=== PATIENT | male | born 1935 | race Caucasian/White ===

== ENCOUNTER 2016-12-21 10:50 | Inpatient (IN) | payer OTHER ==
[~2016-12-21] VITALS: Ht 182.9 cm; Wt 81.6 kg
--- NOTE | 2016-12-21 11:07 | ED GENERAL ADULT ---
History of Present Illness General Chief Complaint: General Adult Stated Complaint: FEVER X5 DAYS, NVD Source: patient Exam Limitations: no limitations Vital Signs & Intake/Output Vital Signs & Intake/Output Vital Signs Date Time Temp Pulse Resp B/P B/P Pulse O2 O2 Flow FiO2 Mean Ox Delivery Rate 12/21 2151 98.6 63 18 128/50 94 Room Air 12/21 2127 63 128/50 12/21 1734 156/60 12/21 1433 98.0 73 18 156/60 99 Room Air 12/21 1357 96.8 63 16 147/67 97 Room Air 12/21 1250 97.4 69 16 158/72 99 Room Air 12/21 1059 98.0 70 18 133/79 100 Room Air Allergies Coded Allergies: No Known Allergies (12/21/16) Reconcile Medications Acetaminophen (Tylenol Extra Strength) 500 MG TABLET 2 TAB PO Q6 PRN FEVER ( Reported) Amlodipine Besylate 10 MG TABLET 1 TAB PO DAILY HEART (Reported) Apixaban (Eliquis) 5 MG TABLET 1 TAB PO BID BLOOD THINNER (Reported) Aspirin (Ecotrin*) 81 MG TABLET.DR 1 TAB PO DAILY HEART HEALTH (Reported) Metoprolol Tartrate 100 MG TABLET 1 TAB PO BID HEART (Reported) Multivit-Min/FA/Lycopen/Lutein (Centrum Silver Tablet) 0.4 MG-300 MCG-250 MCG TABLET 1 TAB PO DAILY VITAMIN SUPPORT (Reported) Simvastatin (Simvastatin*) 40 MG TABLET 1 TAB PO QPM CHOLESTEROL (Reported) Triage Note: PT TO ED FOR FEVER X 5 DAYS AND N/V. LAST DOSE OF TYLENOL AT 9:30 AM. Triage Nurses Notes Reviewed? yes HPI: 81-year-old male with a history of A. fib and hypertension, status post pacemaker placement presenting when fevers with tmax 101 Fahrenheit and myalgias diarrhea over the past 2 days, and nonbloody emesis with eating. Denies abdominal pain, dysuria, chest pain, shortness of breath. Denies sick contacts. Denies recent travel, foul foods, or antibiotic use. (GLENNA LEDESMA,XU) Past History Travel History Traveled to [place] past 21 day No Medical History Any Pertinent Medical History? see below for history Neurological: NONE EENT: NONE Cardiovascular: AFIB, HYPERTENSION HIGH CHOLESTEROL Respiratory: NONE Gastrointestinal: NONE Hepatic: NONE Renal: NONE Musculoskeletal: NONE Psychiatric: NONE Endocrine: NONE Blood Disorders: NONE Cancer(s): NONE Surgical History Surgical History: non-contributory Psychosocial History What is your primary language Amharic Tobacco Use: Never used ETOH Use: denies use Illicit Drug Use: denies illicit drug use Family History Hx Contributory? No (XU MANZANARES PA-C) Review of Systems Review of Systems Constitutional: Reports: chills, fever, malaise. Denies: diaphoresis, weakness. Respiratory: Reports: no symptoms. Cardiovascular: Reports: no symptoms. GI: Reports: diarrhea, nausea, vomiting. Denies: abdominal pain, bloating, constipation, distention, bowel incontinence, melena, bloody stool. Genitourinary: Reports: no symptoms. Musculoskeletal: Reports: muscle pain. Denies: back pain, joint pain, neck pain. Skin: Reports: no symptoms. Neurological/Psychological: Reports: no symptoms. (XU MANZANARES PA-C) Physical Exam Physical Exam General Appearance: well developed/nourished, no apparent distress, awake, comfortable Head: atraumatic Ears, Nose, Throat: normal ENT inspection Respiratory: normal breath sounds, lungs clear Cardiovascular: regular rate/rhythm, normal peripheral pulses Gastrointestinal: normal bowel sounds, soft, non-tender, no organomegaly Neurologic/Psych: awake, alert, oriented x 3, normal gait, normal mood/affect Skin: intact, normal color, warm/dry Core Measures ACS in differential dx? No CVA/TIA Diagnosis: No Severe Sepsis Present: No Septic Shock Present: No (XU MANZANARES PA-C) Progress Differential Diagnoses I considered the following diagnoses in my evaluation of the patient: [ Gastroenteritis versus tracheitis versus biliary versus appendicitis versus colitis] Plan of Care: Orders Procedure Date/time Status MAGNESIUM 12/22 06 Active CBC WITHOUT DIFFERENTIAL 12/22 599 Active BASIC ELECTROLYTES PLUS BUN&CR 12/22 06 Active Clear Liquid Diet 12/21 D Active BLOOD CULTURE 12/21 1436 Active Pathway - chart 12/21 1433 Active Vital Signs 12/21 1432 Active Teach/Educate 12/21 1432 Active Pain Treatment and Response 12/21 1432 Active Nutritional Intake, Monitor 12/21 1432 Active Isolation 12/21 1432 Active Intake & Output 12/21 1432 Active Patient Care Conference 12/21 1432 Active Activity/Ambulation 12/21 1432 Active OVA AND PARASITE ANTIGENS 12/21 1427 Active Pathway - chart 12/21 1426 Active House Staff 12/21 1426 Active Patient Data 12/21 1252 Active Admit to inpatient 12/21 1243 Active Vital Signs 12/21 1243 Active Code Status 12/21 1243 Active Intake & Output 12/21 1147 Active RETICULOCYTE COUNT 12/21 1136 Complete CULTURE,URINE 12/21 1115 Active URINALYSIS 12/21 1115 Complete LIPASE 12/21 1115 Complete COMPREHENSIVE METABOLIC PANEL 12/21 1115 Complete CBC WITHOUT DIFFERENTIAL 12/21 1115 Complete Lab Add-on Test 12/21 UNK Active VTE Mechanical Prophylaxis 12/21 UNK Active Vital Signs 12/21 UNK Active Intake & Output 12/21 UNK Active Hemoccult 12/21 UNK Active Current Medications Sig/Diana Start time Last Medication Dose Stop Time Status Admin Metoprolol Tartrate 100 MG BID 12/21 2200 AC 12/21 (Lopressor) 2127 Atorvastatin Calcium 20 MG 1700 12/21 1700 AC 12/21 (Lipitor) 1734 Amlodipine Besylate 10 MG DAILY 12/21 1506 AC 12/21 (Norvasc) 1734 Acetaminophen 650 MG Q8 PRN 12/21 1445 AC 12/21 (Tylenol) 1753 Morphine Sulfate 0.5 MG Q6 PRN 12/21 1445 AC (Morphine) Ondansetron HCl 4 MG Q6P PRN 12/21 1445 AC (Zofran) Oxycodone HCl 5 MG Q8 PRN 12/21 1445 AC 12/21 (Roxicodone) 1454 Apixaban 5 MG BID 12/21 1430 AC 12/21 (Eliquis) 2127 Aspirin Buffered 81 MG DAILY 12/21 1430 AC 12/21 (Ecotrin) 1734 Laboratory Tests 12/21/16 1136: CBC w Diff MAN DIFF ORDERED, RBC 3.54 L, MCV 89.0, MCH 30.6, RDW 13.9, MPV 8.1, Gran % 72.0, Lymphocytes % 17.0 L, Monocytes % 10.9 H, Eosinophils % 0.1, Basophils % 0 L, Absolute Granulocytes 1.4, Segmented Neutrophils 63, Band Neutrophils 10 H, Absolute Lymphocytes 0.3 L, Lymphocytes 21, Monocytes 4, Absolute Monocytes 0.2, Absolute Eosinophils 0, Basophils 2, Absolute Basophils 0, Platelet Estimate DECREASED, Polychromasia 1+, Poikilocytosis 1+, Ovalocytes 1+, PUBS MCHC 34.3, Retic Count 2.76 H 12/21/16 1130: Anion Gap 9, Estimated GFR 53 L, BUN/Creatinine Ratio 15.4, Glucose 144 H, Calcium 8.6, Total Bilirubin 0.7, AST 79 H, ALT 62, Alkaline Phosphatase 35, Total Protein 6.1 L, Albumin 3.4 L, Globulin 2.7, Albumin/Globulin Ratio 1.3, Lipase 325 H 12/21/16 1127: Urinalysis MOD H, Urine Color KRISTIN, Urine Clarity CLDY H, Urine pH 6.0, Ur Specific [place] 1.025, Urine Protein >=300 H, Urine Ketones NEG, Urine Nitrite NEG, Urine Bilirubin NEG@ICTO, Urine Urobilinogen 0.2, Ur Leukocyte Esterase NEG , Ur Microscopic SEDIMENT EXAMINED, Urine RBC 1-3, Urine WBC RARE, Ur Epithelial Cells FEW, Urine Bacteria FEW H, Granular Casts FEW H, Urine Mucus MOD H, Urine Hemoglobin MOD H, Urine Glucose NEG Microbiology 12/21 1436 BLOOD: Blood Culture - COLB 12/21 1436 BLOOD: Blood Culture - COLB 12/21 1427 STOOL: Cryptosporidium Antigen - COLB 12/21 1427 STOOL: Giardia Antigen (DEBBIE) - COLB 12/21 1127 URINE ROUT: Urine Culture - RECD Patient's labs are remarkable for leukopenia to 2.0 with a bandemia to 10.0, thrombocytopenia to 62, anemia with H&H to 10.8/31.5. There are no prior labs in our system to compare these numbers to. Patient was guaiac negative. Suspect that lab abnormalities are secondary to viral infection. Labs are also remarkable for hyponatremia to 131. Given patient's weakness leukopenia, anemia , thrombocytopenia, and electrolyte abnormalities Will admit to medicine for supportive care and serial lab monitoring. Patient began to endorse intermittent right lower quadrant pain while he was here in the ED. Reassessed abdomen and the patient had no tenderness to palpation in the right lower quadrant, no rebound or guarding, negative obturator/so as/Rovsing sign. Ordered for CT abdomen and pelvis to rule out appendicitis, although suspicion is low. (GLENNA LEDESMA,XU) Initial ED EKG: none (XU MANZANARES PA-C) Departure Departure Disposition: STILL A PATIENT Condition: Stable Clinical Impression Primary Impression: Nausea vomiting and diarrhea Secondary Impressions: Anemia, Fever, Hyponatremia, Leukopenia, Thrombocytopenia Referrals: Péerz CHERY MD (PCP/Family) Departure Forms: Customer Survey General Discharge Information (XU MANZANARES PA-C) PA/STENCIL PRINTER Co-Sign Statement Statement: ED Attending supervision documentation- [X] I saw and evaluated the patient. I have also reviewed all the pertinent lab results and diagnostic results. I agree with the findings and the plan of care as documented in the PA's/STENCIL PRINTER's documentation. [X] I have reviewed the ED Record and agree with the PA's/STENCIL PRINTER's documentation. [] Additions or exceptions (if any) to the PAs/STENCIL PRINTER's note and plan are summarized below: [] (LEONARDO AGUILAR,LEELEE) Critical Care Note Critical Care Note Critical Care Time: non-applicable (XU MANZANARES PA-C) ED Attending Observation Initial Observation Note: I have seen and personally examined GIN LAZO on 12/21/16 at 1316. I agree with the current emergency department documentation. The disposition (admission or discharge) is uncertain at this time, he needs a period of observation for the following reason(s): [IV fluids, IV antiemetics, serial lab tests to assess trend of WBC, hemoglobin, hematocrit, platelet count, electrolytes] The ED Nurse caring for this patient has been personally informed as to what the patient is being observed for. Observation Re-Evaluation: I have reevaluated GIN LAZO on 12/21/16 at 1317. The physical findings that support the continued need to observe this patient include [leukopenia, anemia, thrombocytopenia, hyponatremia]. (XU MANZANARES PA-C)
[2016-12-21] MEDS ORDERED: AMLODIPINE BESY10 M1 PO (11:32)
[2016-12-21] MEDS ORDERED: ASPIRIN EC81 M1 PO (11:33)
[2016-12-21] MEDS ORDERED: CENTRUM SILVER1 EAC3 PO (11:33)
[2016-12-21] MEDS ORDERED: SIMVASTATIN40 M1 PO (11:34)
[2016-12-21] MEDS ORDERED: METOPROLOL TAR100 M1 PO (11:34)
[2016-12-21] MEDS ORDERED: ELIQUIS5 M1 PO (11:34)
[2016-12-21] MEDS ORDERED: TYLENOL EXTRA500 M2 PO (11:35)
[2016-12-21 11:41] LABS: ABSOLUTE BASOPHIL COUNT 0 /CUMM (0.0-0.2); ABSOLUTE EOSINOPHIL COUNT 0 /CUMM (0.0-0.7); ABSOLUTE GRANULOCYTE CT 1.4 /CUMM (1.4-6.5); ABSOLUTE LYMPH COUNT 0.3 /CUMM (1.2-3.4); ABSOLUTE MONOCYTE COUNT 0.2 /CUMM (0.10-0.60); BASOPHIL % 0 % (0.0-2.0); EOSINOPHIL % 0.1 % (0-5); HEMATOCRIT 31.5 % (42-52); MEAN CORPUSCULAR HGB 30.6 PG (27.0-31.0); MEAN CORPUSCULAR HGB CONC 34.3 G/DL (33.0-37.0); MEAN PLATELET VOLUME 8.1 FL (7.4-10.4); PLATELET COUNT 64 /CUMM (130-400); RBC DISTRIBUTION WIDTH 13.9 % (11.5-14.5); RED BLOOD CELL CT 3.54 /CUMM (4.70-6.10)
--- NOTE | 2016-12-21 14:08 | History & Physical ---
IVON MILLER MD,EDNA 12/21/16 1408: General Information and HPI MD Statement: I have seen and personally examined GIN LAZO and documented this H&P. The patient is a 81 year old M who presented with a patient stated chief complaint of [nausea, vomiting, fever]. Source of Information: patient, family Exam Limitations: no limitations History of Present Illness: 81-year-old man with past medical history significant for atrial fibrillation on Eliquis, hypertension, hyperlipidemia, history of CABG in 1999, status post pacemaker in 2009, history of prostate cancer status post surgery 2005, brought in the emergency department by his son who noticed high-grade fever of 101 this morning. According to the patient and his son patient feels extremely lethargic 3-4 days ago. He started experiencing some episodes of nausea and vomiting in the last 2 days. This morning he had a temperature spike of 101 and few episodes of vomiting that contained food particles. Patient also had some chills. Patient denied any blood in the vomitus. Patient denied any abdominal pain, but he did have one episode of loose bowel movement yesterday which according to him was predominantly watery. Patient denied seeing any fresh blood or dark stools. Review of system was negative for any acute headaches, visual changes, chest pain, shortness of breath, rash, sick contacts, recent travel, or eating out. Allergies/Medications Allergies: Coded Allergies: No Known Allergies (12/21/16) Home Med list Acetaminophen (Tylenol Extra Strength) 500 MG TABLET 2 TAB PO Q6 PRN FEVER ( Reported) Amlodipine Besylate 10 MG TABLET 1 TAB PO DAILY HEART (Reported) Apixaban (Eliquis) 5 MG TABLET 1 TAB PO BID BLOOD THINNER (Reported) Aspirin (Ecotrin*) 81 MG TABLET.DR 1 TAB PO DAILY HEART HEALTH (Reported) Metoprolol Tartrate 100 MG TABLET 1 TAB PO BID HEART (Reported) Multivit-Min/FA/Lycopen/Lutein (Centrum Silver Tablet) 0.4 MG-300 MCG-250 MCG TABLET 1 TAB PO DAILY VITAMIN SUPPORT (Reported) Simvastatin (Simvastatin*) 40 MG TABLET 1 TAB PO QPM CHOLESTEROL (Reported) Compliance With Home Meds: FAIR Past History Travel History Traveled to [place] past 21 day No Medical History Neurological: NONE EENT: NONE Cardiovascular: AFIB, HYPERTENSION HIGH CHOLESTEROL Respiratory: NONE Gastrointestinal: NONE Hepatic: NONE Renal: NONE Musculoskeletal: NONE Psychiatric: NONE Endocrine: NONE Blood Disorders: NONE Cancer(s): NONE Isolation History: Standard Surgical History Surgical History: non-contributory Past Family/Social History Family History Relations & Conditions if any Relation not specified for: *No pertinent family history Psychosocial History Where do you live? Home Who Do You Live With? spouse Services at Home: None Primary Language: Honduran ETOH Use: denies use Illicit Drug Use: denies illicit drug use Functional Ability ADLs Independent: dressing, eating, toileting, bathing. Ambulation: independent IADLs Independent: shopping, housework, finances, food prep, telephone, transportation , medication admin. Review of Systems Review of Systems Constitutional: Reports: chills, fever. EENTM: Denies: visual changes. Cardiovascular: Denies: chest pain, palpitations. Respiratory: Denies: cough, short of breath. GI: Reports: diarrhea, nausea, vomiting. Denies: abdominal pain. Genitourinary: Denies: discharge. Musculoskeletal: Denies: back pain, joint pain. All Other Systems: Reviewed and Negative Exam & Diagnostic Data Last 24 Hrs of Vital Signs/I&O Vital Signs Date Time Temp Pulse Resp B/P B/P Pulse O2 O2 Flow FiO2 Mean Ox Delivery Rate 12/21 1357 96.8 63 16 147/67 97 Room Air 12/21 1250 97.4 69 16 158/72 99 Room Air 12/21 1059 98.0 70 18 133/79 100 Room Air Intake & Output 12/21 1600 12/21 0800 12/21 0000 Intake Total 1000 Output Total 300 Balance 700 Intake, IV 1000 Output, Urine 300 Patient 180 lb Weight Weight Reported by Patient Measurement Method Physical Exam General Appearance Alert, Oriented X3, Cooperative, No Acute Distress Skin No Rashes HEENT Atraumatic Neck Supple Cardiovascular Regular Rate, Normal S1, Normal S2, No Murmurs Lungs Clear to Auscultation, Normal Air Movement Abdomen Normal Bowel Sounds, Soft, No Tenderness Neurological Normal Speech, Normal Tone, Sensation Intact Vascular Normal Pulses Last 24 Hrs of Labs/Cj: Laboratory Tests 12/21/16 1136: CBC w Diff MAN DIFF ORDERED, RBC 3.54 L, MCV 89.0, MCH 30.6, RDW 13.9, MPV 8.1, Gran % 72.0, Lymphocytes % 17.0 L, Monocytes % 10.9 H, Eosinophils % 0.1, Basophils % 0 L, Absolute Granulocytes 1.4, Segmented Neutrophils 63, Band Neutrophils 10 H, Absolute Lymphocytes 0.3 L, Lymphocytes 21, Monocytes 4, Absolute Monocytes 0.2, Absolute Eosinophils 0, Basophils 2, Absolute Basophils 0, Platelet Estimate DECREASED, Polychromasia 1+, Poikilocytosis 1+, Ovalocytes 1+, PUBS MCHC 34.3 12/21/16 1130: Anion Gap 9, Estimated GFR 53 L, BUN/Creatinine Ratio 15.4, Glucose 144 H, Calcium 8.6, Total Bilirubin 0.7, AST 79 H, ALT 62, Alkaline Phosphatase 35, Total Protein 6.1 L, Albumin 3.4 L, Globulin 2.7, Albumin/Globulin Ratio 1.3, Lipase 325 H 12/21/16 1127: Urinalysis MOD H, Urine Color KRISTIN, Urine Clarity CLDY H, Urine pH 6.0, Ur Specific [place] 1.025, Urine Protein >=300 H, Urine Ketones NEG, Urine Nitrite NEG, Urine Bilirubin NEG@ICTO, Urine Urobilinogen 0.2, Ur Leukocyte Esterase NEG , Ur Microscopic SEDIMENT EXAMINED, Urine RBC 1-3, Urine WBC RARE, Ur Epithelial Cells FEW, Urine Bacteria FEW H, Granular Casts FEW H, Urine Mucus MOD H, Urine Hemoglobin MOD H, Urine Glucose NEG Microbiology 12/21 1127 URINE ROUT: Urine Culture - RECD Diagnostic Data Other Results CT abdomen pelvis with IV contrast pending Assessment/Plan Assessment: 81-year-old man with past medical history significant for atrial fibrillation on Eliquis, hypertension, hyperlipidemia, history of CABG in 1999, status post pacemaker in 2009, history of prostate cancer status post surgery 2005, chronic kidney disease, brought in the emergency department by his son who noticed high- grade fever of 101 this morning, along with few episodes of nausea and nonbloody emesis. Patient will be admitted on general medicine so for the management of following problems Fever nausea and vomiting Acute Diarrheal episode most likely from gastroenteritis, viral but possibility of bacteria cannot be ruled out. Will get stool ova and parasite. Although patient did not have any bloody bowel movement will keep the possibility of ischemic colitis( extensive cardiac history) vs in mind patient denies anybody diarrhea. - Admit to General Medicine - Vitals Q Shift - Clear liquid diet, will advance as tolerated - Zofran for nausea - Serial abdominal exams - Prilosec 40 mg daily AC - Will check stool studies,ova/parasites - Check Hemeoccult - Rehydrate the patient with NS@ 100ml/hour - Monitor I/O History of atrial fibrillation/coronary artery disease Patient has past medical history significant for CABG in 1999 and atrial fibrillation on anticoagulation. Continue with Eliquis and aspirin. Pancytopenia WBC count of 2, hemoglobin of 10.8 hematocrit 31.5, platelet count 64. Patient is past medical history significant for pancreatic cancer and underwent surgery for that. Absolute neutrophil count of 720. Since patient developed fever in the setting of low ANC, we will get the blood cultures. Follow Retic count and peripheral smear. Patient is full code Patient is on Eliquis for DVT prophylaxis Patient is a heart healthy diet Patient is on pain management As Ranked By This Provider Problem List: 1. Leukopenia 2. Fever 3. Nausea vomiting and diarrhea 4. Thrombocytopenia Core Measures/Miscellaneous Acute Coronary Syndrome ACS Diagnosis: No Cerebrovascular Accident CVA/TIA Diagnosis: No Congestive Heart Failure CHF Diagnosis: No VTE (View Protocol) VTE Risk Factors: Acute medical illness, Age > 40, Cancer/chemo/oth therapy No Mech VTE prophylaxis d/t: VTE low risk, No contraindications No VTE Pharm Prophylaxis d/t: VTE low risk, No contraindications VTE Diagnosis: No VTE Type: NONE VTE Confirmed by (Test): NONE Sepsis (View Protocol) Severe Sepsis Present: No Septic Shock Septic Shock Present: No Miscellaneous Documentation Attending Case Discussed With: CHASE WIN MD Primary Care Physician: Pérez CHERY MD Patient sees these Specialists PCP Level of Patient Care: General Medicine CHASE WIN MD 12/21/164: Attending MD Review Statement Attending Statement Attending MD Statement: examined this patient, discuss w/resident/PA/LUMBER MOVER, agreed w/resident/PA/LUMBER MOVER, reviewed EMR data (avail) Attending Assessment/Plan: 81M PMH atrial fibrillation on Eliquis, hypertension, hyperlipidemia, history of CABG in 1999, status post pacemaker in 2009, history of prostate cancer status post surgery 2005 with 3-4 days of nausea, vomiting, and diarrhea, febrile to 101. Patient is weak and dehydrated, generalized weakness and difficulty ambulating and with ADLs due to illness. Soft abdomen, no bloody stool, no recent travel or sick contacts. Mildly tachycardic in ED, BP normal. Labs show pancytopenia, CKD stage II. 1. Acute gastroenteritis 2. Dehydration 3. Generalized weakness 4. Pancytopenia 5. CKD stage II 6. Chronic atrial fibrillation Plan - Admit to general medicine - IV hydration - Monitor electrolytes - Peripheral smear - Monitor CBC and renal function - Likely outpatient hematology workup for pancytopenia - Continue home medications - Advance diet as tolerated - Zofran PRN - DVT PPx
[2016-12-21 14:33] VITALS: BP 156/60
--- NOTE | 2016-12-21 15:24 | CT SCAN REPORT ---
EXAMINATION: CT ABDOMEN AND PELVIS WITH CONTRAST CLINICAL INFORMATION: Intermittent right lower quadrant pain with fevers, nausea, vomiting and diarrhea. COMPARISON: None TECHNIQUE: Multidetector volumetric imaging was performed of the abdomen and pelvis before and after the IV administration of 95 mL of Optiray 320 intravenous contrast. Sagittal and coronal reformatted images were obtained on the technologist's workstation. DLP: 396 mGy-cm FINDINGS: LUNG BASES: Dual pacer leads are identified in the right heart. The patient is status post median sternotomy with multiple sternal wires. Otherwise unremarkable. LIVER AND SPLEEN: There is a 1.5 cm low-density lesion inferiorly in the right lobe of liver posteriorly too small for definitive characterization, likely a small cyst. The spleen is unremarkable in appearance with a small splenule posteriorly and medially. PANCREAS, GALLBLADDER AND BILIARY TREE: Unremarkable. KIDNEYS, URETERS, AND ADRENALS: Multiple small parapelvic renal cysts are identified. There is a 7 x 5 mm calculus in the mid pole left kidney. Otherwise, there is no evidence of urolithiasis. There is a 1.2 cm low-density lesion in the mid to lower pole of the left kidney, likely a small cyst. Adrenal glands appear unremarkable. URINARY BLADDER: Partially filled and unremarkable. GI TRACT: Unremarkable including a normal-appearing appendix. PERITONEAL CAVITY: There is a trace amount of free fluid in the deep pelvis without evidence of an acute inflammatory process. RETROPERITONEUM: Moderate atherosclerotic aortic calcification without aneurysmal dilatation. There is no retroperitoneal lymphadenopathy or focal masses. PELVIC ORGANS: Prostate is not visualized, question previous removal. There is no pelvic lymphadenopathy. OSSEOUS STRUCTURES: No focal aggressive-appearing osseous lesions. Mild degenerative changes. ANTERIOR ABDOMINAL WALL AND SOFT TISSUES: No significant hernia is identified. IMPRESSION: 1. No evidence of an acute intra-abdominal process. 2. Trace amount of intraperitoneal free fluid in the deep pelvis. 3. Multiple parapelvic renal cysts with a probable single small left cortical cyst and small left renal calculus without hydronephrosis. 4. Probable small hepatic cyst. Ultrasound could be performed to confirm these findings. 5. There are postsurgical and procedural changes as noted.
--- NOTE | 2016-12-21 21:27 | Admission Certification ---
Admission Certification Certification Statement - As attending physician, I certify that at the time of - admission, based on clinical presentation, severity of - symptoms, need for further diagnostic testing and - therapeutic interventions, and risk of adverse outcomes - without in-hospital treatment, in my clinical assessment, - this patient requires an acute hospital stay for a minimum - of two nights or longer. I have also considered psychsocial - factors such as support system, advanced age, financial - issues, cognitive issues, and failed out-patient treatments, - past re-admission history, safety of patient, and lack of - compliance as applicable. Specific rationale supporting this admission is: Acute gastroenteritis with dehydration and weakness with pancytopenia
[2016-12-21 21:51] VITALS: BP 128/50
[2016-12-22 06:30] VITALS: BP 128/62
--- NOTE | 2016-12-22 07:26 | PN- Housestaff ---
NORMA AGUILAR,MERCEDES 12/22/16 0725: Subjective Follow-up For: Suspected Anaplasma Pancytopenia Right hip and back pain Subjective: I saw and examined the patient today morning Patient reports significant fatigue that started a week ago. He denies any nausea/diarrhea/vomiting after admitting however he feels sick in his stomach and reports unable to tolerate diet. He feels significant pain in his right hip region pointing towards muscle on the later part. Denies any fever/chills overnight. He had a mildly low-grade temperatures 100.4 in the evening Review of Systems Constitutional: Reports: see HPI. Comments: ROS negative except above Objective Last 24 Hrs of Vital Signs/I&O Vital Signs Date Time Temp Pulse Resp B/P B/P Pulse O2 O2 Flow FiO2 Mean Ox Delivery Rate 12/21 2151 98.6 63 18 128/50 94 Room Air 12/21 2127 63 128/50 12/21 1734 156/60 12/21 1433 98.0 73 18 156/60 99 Room Air 12/21 1357 96.8 63 16 147/67 97 Room Air 12/21 1250 97.4 69 16 158/72 99 Room Air 12/21 1059 98.0 70 18 133/79 100 Room Air Intake & Output 12/22 0800 12/22 0000 12/21 1600 Intake Total 800 1120 Output Total 300 Balance 800 820 Intake, IV 1000 Intake, Oral 800 120 Output, Urine 300 Patient 81.647 kg Weight Weight Reported by Patient Measurement Method Physical Exam General Appearance: Alert, Oriented X3, Cooperative Skin: No Rashes, No Breakdown HEENT: Atraumatic, PERRLA, EOMI Neck: Supple Cardiovascular: Normal S1, Normal S2 Lungs: Clear to Auscultation, Normal Air Movement Abdomen: Normal Bowel Sounds, Soft, No Tenderness Neurological: Normal Speech, Normal Tone, tenderness in the right later hip region Extremities: No Clubbing, No Cyanosis, No Edema Vascular: Normal Pulses, Pulses Symmetrical Current Medications: Current Medications Sig/Diana Start time Last Medication Dose Route Stop Time Status Admin Acetaminophen 650 MG Q8 PRN 12/21 1445 AC 12/21 PO 1753 Amlodipine Besylate 10 MG DAILY 12/21 1506 AC 12/21 PO 1734 Apixaban 5 MG BID 12/21 1430 AC 12/21 PO 2127 Aspirin Buffered 81 MG DAILY 12/21 1430 AC 12/21 PO 1734 Atorvastatin Calcium 20 MG 1700 12/21 1700 AC 12/21 PO 1734 Heparin Sodium 5,000 UNIT Q8 12/21 1421 DC (Porcine) SC Metoprolol Tartrate 100 MG BID 12/21 2200 AC 12/21 PO 2127 Morphine Sulfate 0.5 MG Q6 PRN 12/21 1445 AC IV Ondansetron HCl 4 MG Q6P PRN 12/21 1445 AC IV Ondansetron HCl 4 MG ONCE ONE 12/21 1130 DC 12/21 IV 12/21 1131 1133 Ondansetron HCl 0 .STK-MED ONE 12/21 1128 DC .ROUTE Oxycodone HCl 5 MG Q8 PRN 12/21 1445 AC 12/21 PO 2236 Sodium Chloride 1,000 ML BOLUS ONE 12/21 1300 DC 12/21 IV 12/21 1359 1252 Sodium Chloride 1,000 ML BOLUS ONE 12/21 1115 DC 12/21 IV 12/21 1214 1133 Last 24 Hrs of Lab/Cj Results Last 24 Hrs of Labs/Mics: Laboratory Tests 12/22/16 1742: Total PSA Pending, PT Pending, INR Pending, APTT Pending, Fibrinogen Activity Pending, Lyme Disease Antibody Pending 12/22/16 0640: Anion Gap 5, Estimated GFR > 60, BUN/Creatinine Ratio 12.7, Magnesium 1.7, CBC w Diff MAN DIFF ORDERED, RBC 3.29 L, MCV 88.8, MCH 30.5, RDW 14.1, MPV 8.6, Gran % 53.4, Lymphocytes % 31.6, Monocytes % 14.4 H, Eosinophils % 0.4, Basophils % 0.2, Absolute Granulocytes 0.9 L, Segmented Neutrophils 41 L, Band Neutrophils 17 H, Absolute Lymphocytes 0.5 L, Lymphocytes 31, Monocytes 11 H, Absolute Monocytes 0.2, Absolute Eosinophils 0, Absolute Basophils 0, Platelet Estimate DECREASED, Poikilocytosis 1+, Ovalocytes 1+, PUBS MCHC 34.3 Assessment/Plan Assessment: 81-year-old man with past medical history significant for atrial fibrillation on Eliquis, hypertension, hyperlipidemia, history of CABG in 1999, status post pacemaker in 2009, history of prostate cancer status post surgery 2005, brought in the emergency department by his son who noticed high-grade fever of 101 at home on 12/21/2016. Patient had progressively worsening of myalgias, arthralgias , increased back pain and right hip pain, several episodes of vomiting and a single episode of diarrhea prior to admission. He remained afebrile at admission, pulse 66, blood pressure 133/59 mmHg, on room air. Labs significant for white count of 2.0, with bandemia H&H 10/31.5, platelet of 64 (pancytopenic) . CT abdomen/pelvis didn't reveal any acute process, however demonstrates hepatic and renal cysts. At this point differentials include lymes, Anaplasma, babesiosis, possible myelodysplastic syndrome although less likely. Admitted to general medicine floor Plan Pancytopenia in the setting of recent flulike symptoms * Patient feels intensely fatigued - had a low-grade temperature of 100.4 in the evening * Requested tick panel (Anaplasma/Babesia/lyme) * Empirically started on doxycycline 100 twice a day * Right hip x-ray is negative for any underlying fracture/muscle tear * Requested records from primary care physician - to understand baseline lab values as patient was not admitted previously * Peripheral smear - shows decreased platelets with atypical lymphocytes without any morulae, amharic cross * Hematology consulted, requested PT/PTT/fibular region/PSA (history of prostate cancer) Diarrhea/vomiting * No episodes of emesis/diarrhea after admission * Initially started on clear liquid diet later transitioned to full liquid diet * Closely monitor for any episodes of diarrhea, if had one - we will obtain samples for further testing * Symptomatic treatment for now - Zofran for nausea, Tylenol for pain * D5 half normal saline @75ml/hr - as sodium is dropping down Chronic stable conditions Atrial fibrillation: Eliquis 5 mg twice a day, metoprolol 100 twice a day Hypertension: Amlodipine 10 mg daily and aspirin 81 mg daily Hyperlipidemia: Atorvastatin 20 mg daily Pain control. Tylenol/oxycodone 5 mg every 8 as needed DVT prophylaxis On Eliquis CODE STATUS Full code Problem List: 1. Leukopenia 2. Nausea vomiting and diarrhea 3. Fever 4. Anemia 5. Thrombocytopenia 6. Hyponatremia Pain Ratin Pain Location: right hip Pain Goal: Pain 4 or less Pain Plan: Tylenol and oxycodone Tomorrow's Labs & Rationales: CBC to monitor pancytopenia BEP to monitor sodium levels APERGIS MD,YIANNIS 12/22/16 1100: Attending MD Review Statement Attending Statement Attending MD Statement: examined this patient, discuss w/resident/PA/HONEY EXTRACTOR, agreed w/resident/PA/HONEY EXTRACTOR, reviewed EMR data (avail) Attending Assessment/Plan: 81M PMH atrial fibrillation on Eliquis, hypertension, hyperlipidemia, history of CABG in 1999, status post pacemaker in 2009, history of prostate cancer status post surgery 2005 with 3-4 days of nausea, vomiting, and diarrhea, febrile to 101. Patient is weak and dehydrated, generalized weakness and difficulty ambulating and with ADLs due to illness. Soft abdomen, no bloody stool, no recent travel or sick contacts. Mildly tachycardic in ED, BP normal. Labs show pancytopenia, CKD stage II. Patient reports feeling very weak and tired today. He has no energy or appetite. He remained afebrile overnight and did not have any episodes of vomiting or diarrhea. He denies nausea or pain. WBC 1.6 today, platelets 52, Hgb 10. 1. Acute gastroenteritis 2. Dehydration 3. Generalized weakness 4. Pancytopenia 5. CKD stage II 6. Chronic atrial fibrillation Plan - Continue on general medicine - D5 1/2 NS at 75mL/hr - Monitor electrolytes - Peripheral smear - Monitor CBC and renal function - Hematology consult - ID consult - Continue home medications - Advance diet as tolerated - Zofran PRN - DVT PPx
[2016-12-22 08:04] LABS: ABSOLUTE BASOPHIL COUNT 0 /CUMM (0.0-0.2); ABSOLUTE EOSINOPHIL COUNT 0 /CUMM (0.0-0.7); ABSOLUTE GRANULOCYTE CT 0.9 /CUMM (1.4-6.5); ABSOLUTE LYMPH COUNT 0.5 /CUMM (1.2-3.4); ABSOLUTE MONOCYTE COUNT 0.2 /CUMM (0.10-0.60); BASOPHIL % 0.2 % (0.0-2.0); EOSINOPHIL % 0.4 % (0-5); GRANULOCYTE % 53.4 % (42.2-75.2); HEMATOCRIT 29.2 % (42-52); MEAN CORPUSCULAR HGB 30.5 PG (27.0-31.0); MEAN CORPUSCULAR HGB CONC 34.3 G/DL (33.0-37.0); MEAN CORPUSCULAR VOLUME 88.8 FL (80.0-94.0); MEAN PLATELET VOLUME 8.6 FL (7.4-10.4); PLATELET COUNT 52 /CUMM (130-400); RBC DISTRIBUTION WIDTH 14.1 % (11.5-14.5); RED BLOOD CELL CT 3.29 /CUMM (4.70-6.10); WHITE BLOOD CELL COUNT 1.6 /CUMM (4.8-10.8)
[2016-12-22 08:47] VITALS: BP 148/52
--- NOTE | 2016-12-22 13:46 | Cons- Infect Disease ---
General Information and HPI Consulting Request Date of Consult: 12/22/16 Requested By: CHASE WIN MD Reason for Consult: Pancytopenia Source of Information: patient History of Present Illness: This is an 81-year-old man with a history of atrial fibrillation, maintained on Eliquis, hypertension, coronary artery disease, status post CABG, status post pacemaker, prostate cancer, status post TURP, admitted on December 21 after returning to the emergency room with a one-week history of weakness, myalgias, arthralgias, particularly involving the right hip, shortness of breath with exertion, increased back pain, several episodes of vomiting and one episode of diarrhea, fevers and chills. On admission he was afebrile. Laboratory data revealed a white blood cell count of 2000, with 63 segs and 10 bands and occasional reactive/atypical lymphs noted, H&H 11 and 32, platelets 64,000, BUN/ creatinine 20 and 1.3, sodium 131, lipase 325, AST/ALT 79 and 62. Urinalysis 1- 3 RBC/rare WBCs. CT of the abdomen and pelvis with IV contrast revealed no acute process. He was followed off antibiotics and has remained afebrile since admission. His blood work this morning reveals a further decrease in all of his counts and he continues to complain of right hip pain, diffuse arthralgias and myalgias. He has had no new medications. He does spend time outdoors and did note a tick several months prior to admission but none recently and he has not noted any rashes. Allergies/Medications Allergies: Coded Allergies: No Known Allergies (12/21/16) Home Med List: Acetaminophen (Tylenol Extra Strength) 500 MG TABLET 2 TAB PO Q6 PRN FEVER ( Reported) Amlodipine Besylate 10 MG TABLET 1 TAB PO DAILY HEART (Reported) Apixaban (Eliquis) 5 MG TABLET 1 TAB PO BID BLOOD THINNER (Reported) Aspirin (Ecotrin*) 81 MG TABLET.DR 1 TAB PO DAILY HEART HEALTH (Reported) Metoprolol Tartrate 100 MG TABLET 1 TAB PO BID HEART (Reported) Multivit-Min/FA/Lycopen/Lutein (Centrum Silver Tablet) 0.4 MG-300 MCG-250 MCG TABLET 1 TAB PO DAILY VITAMIN SUPPORT (Reported) Simvastatin (Simvastatin*) 40 MG TABLET 1 TAB PO QPM CHOLESTEROL (Reported) Past History Travel History Traveled to [place] past 21 day No Medical History Blood Transfusion Hx: Yes Neurological: NONE EENT: NONE Cardiovascular: AFIB, CAD, hypertension, hyperlipidemia Respiratory: NONE Gastrointestinal: lactose intolerance Hepatic: NONE Renal: NONE Musculoskeletal: chronic back pain Psychiatric: NONE Endocrine: NONE Blood Disorders: NONE Cancer(s): NONE History of MRSA: No History of VRE: No History of CDIFF: No Isolation History: Standard Surgical History Surgical History: CABG, prostatectomy, PARATHYROID, status post pacemaker Family History Relations & Conditions If Any: Relation not specified for: *No pertinent family history Psychosocial History Where Do You Live? Home Who Do You Live With? spouse Services at Home: None Primary Language: Italian Smoking Status: Former Smoker ETOH Use: denies use Illicit Drug Use: denies illicit drug use Functional Ability ADLs Independent: dressing, eating, toileting, bathing. Ambulation: independent IADLs Independent: shopping, housework, finances, food prep, telephone, transportation , medication admin. Review of Systems Review of Systems Cardiovascular: Denies: chest pain. Respiratory: Reports: short of breath. Denies: cough. GI: Denies: abdominal pain. Genitourinary: Reports: no symptoms. Musculoskeletal: Reports: joint pain, muscle pain. Skin: Denies: rash. Exam & Diagnostic Data Last 24 Hrs of Vital Signs/I&O Vital Signs Date Time Temp Pulse Resp B/P B/P Pulse O2 O2 Flow FiO2 Mean Ox Delivery Rate 12/22 0935 64 148/52 12/22 0935 64 148/52 12/22 0847 99.4 64 18 148/52 12/22 0630 98.8 70 20 128/62 92 Room Air 12/21 2151 98.6 63 18 128/50 94 Room Air 12/21 2127 63 128/50 12/21 1734 156/60 12/21 1433 98.0 73 18 156/60 99 Room Air 12/21 1357 96.8 63 16 147/67 97 Room Air Intake & Output 12/22 1600 12/22 0800 12/22 0000 Intake Total 800 Output Total Balance 800 Intake, Oral 800 Physical Exam Other Physical Findings: He is awake and alert in no acute distress. He is afebrile. Skin reveals no rash. HEENT exam is negative. Neck is supple with no adenopathy. Lungs are clear. Heart regular rhythm with no murmur. Abdomen is soft, nontender with positive bowel sounds. Back no CVA tenderness. Extremities no cyanosis, clubbing or edema; some discomfort with movement of the right hip, with no overlying inflammation. Neuro is without focality. Last 24 Hours of Lab Results: Laboratory Tests 12/22 0640 Chemistry Sodium (137 - 145 mmol/L) 132 L Potassium (3.5 - 5.1 mmol/L) 3.9 Chloride (98 - 107 mmol/L) 102 Carbon Dioxide (22 - 30 mmol/L) 25 Anion Gap (5 - 16) 5 BUN (9 - 20 mg/dL) 14 Creatinine (0.7 - 1.2 mg/dL) 1.1 Estimated GFR (>60 ml/min) > 60 BUN/Creatinine Ratio (7 - 25 %) 12.7 Magnesium (1.6 - 2.3 mg/dL) 1.7 Hematology CBC w Diff MAN DIFF ORDERED WBC (4.8 - 10.8 /CUMM) 1.6 L RBC (4.70 - 6.10 /CUMM) 3.29 L Hgb (14.0 - 18.0 G/DL) 10.0 L Hct (42 - 52 %) 29.2 L MCV (80.0 - 94.0 FL) 88.8 MCH (27.0 - 31.0 PG) 30.5 RDW (11.5 - 14.5 %) 14.1 Plt Count (130 - 400 /CUMM) 52 L MPV (7.4 - 10.4 FL) 8.6 Gran % (42.2 - 75.2 %) 53.4 Lymphocytes % (20.5 - 51.1 %) 31.6 Monocytes % (1.7 - 9.3 %) 14.4 H Eosinophils % (0 - 5 %) 0.4 Basophils % (0.0 - 2.0 %) 0.2 Absolute Granulocytes (1.4 - 6.5 /CUMM) 0.9 L Segmented Neutrophils (42.2 - 75.2 %) 41 L Band Neutrophils (0.0 - 5.0 %) 17 H Absolute Lymphocytes (1.2 - 3.4 /CUMM) 0.5 L Lymphocytes (20.5 - 51.1 %) 31 Monocytes (1.7 - 9.3 %) 11 H Absolute Monocytes (0.10 - 0.60 /CUMM) 0.2 Absolute Eosinophils (0.0 - 0.7 /CUMM) 0 Absolute Basophils (0.0 - 0.2 /CUMM) 0 Platelet Estimate (ADEQUATE) DECREASED Poikilocytosis 1+ Ovalocytes 1+ PUBS MCHC (33.0 - 37.0 G/DL) 34.3 Last 24 Hours of Cj Results: Urine culture December 21 negative Diagnostic Data Recent Imaging Findings: CT of the abdomen and pelvis with IV contrast December 21 no acute process Assessment/Plan Assessment/Plan Impression: This is an 81-year-old man with a history of coronary artery disease, status post CABG, atrial fibrillation, maintained on Eliquis, status post pacemaker, hypertension, prostate cancer and chronic low back pain admitted on December 21 with a one-week history of weakness, myalgias, arthralgias, particularly involving the right hip, and more acute onset of fevers, chills, nausea and vomiting, found to be afebrile with pancytopenia with no obvious source of infection. I am most concerned about a tickborne illness, such as Anaplasma, given his outdoor exposure and the acute onset of his symptoms. The bandemia, atypical/ reactive lymphs and mildly elevated liver enzymes are consistent with this diagnosis. Co-infection with Babesia, given his anemia, which is not typically seen with Anaplasma, or Lyme must also be considered. Of note the tick that carries Anaplasma, Lyme and Babesia, Ixodes scapularis, also carries Borrelia miyamotoi and [place] virus, both of which can also cause leukopenia and thrombocytopenia. He he has not been on any new medications, but results of his old blood work would be helpful. Suggestion: 1. Obtain medical records regarding his most recent lab data 2. Would send serum for PCR for Anaplasma and Babesia 3. Lyme titer 4. Review peripheral smear for morulae within the white blood cells 5. Begin Doxycycline 100 mg po every 12 hours Consult Acknowledgment - Thank you for your consult request.
[2016-12-22 14:13] VITALS: BP 142/44
--- NOTE | 2016-12-22 14:49 | RADIOLOGY REPORT ---
EXAMINATION: CR HIP, RIGHT CR LUMBAR SPINE CLINICAL INFORMATION: Lower back pain. Right hip pain on ambulation. COMPARISON: CT scan of the abdomen and pelvis dated 12/21/2016. TECHNIQUE: Frontal view of the right hip. Frontal and lateral views of the lumbar spine performed on 5 images. FINDINGS: Right hip: Some irregularity is seen at the lateral femoral head neck junction, most likely related to projection, slight varus deformity and degenerative changes at the hip joint. No definite fracture or dislocation is seen on single view, and the recent CT scan from yesterday had shown no acute fracture or dislocation. Mild superior acetabular joint space narrowing is seen and prominent hypertrophic changes are seen in the soft tissues about the hip. Enthesopathic changes are also seen associated with the greater trochanter. Lumbar spine: Normal alignment. No acute fracture or dislocation. Disc space height relatively well-maintained at all levels. Bulky vertebral spurring and moderate facet arthropathy noted throughout the lumbar spine. Paraspinal soft tissues are unremarkable. Partial ankylosis of the sacroiliac joints is seen. Dense atherosclerotic calcifications of the aorta are seen. IMPRESSION: 1. Limited assessment of right hip with irregularities at the lateral femoral head neck junction most likely related to technique and underlying varus deformity of the hip and degenerative changes. Close clinical correlation is requested to assess if there is a clinical change since the CT scan from yesterday, which had revealed no acute fracture of the right hip. If there is a change, would recommend dedicated 2 view right hip films for further assessment. 2. No acute fracture in the lumbar spine. 3. Moderate vertebral spondylosis and facet arthropathy throughout the lumbar spine. 4. Dense atherosclerotic calcifications of the aorta and branch vessels.
[2016-12-22 19:19] LABS: PT 17.4 SEC (9.4-12.5); PTT 35 SEC (25-37)
[2016-12-22 22:40] VITALS: BP 126/50
[2016-12-23 06:18] VITALS: BP 138/58
--- NOTE | 2016-12-23 07:29 | PN- Housestaff ---
See Addendum Subjective Follow-up For: Pancytopenia Possible lymes disease Subjective: I saw and examined the patient today morning He is doing much better in terms of pain and fatigue. No overnight events. He denies any nausea/vomiting/diarrhea. Review of Systems Constitutional: Reports: see HPI. Comments: ROS negative except above Objective Last 24 Hrs of Vital Signs/I&O Vital Signs Date Time Temp Pulse Resp B/P B/P Pulse O2 O2 Flow FiO2 Mean Ox Delivery Rate 12/23 0618 98.2 63 20 138/58 93 Room Air 12/22 2240 99.6 67 20 126/50 93 Room Air 12/22 2144 67 120/50 12/22 1413 100.4 63 18 142/44 90 12/22 0935 64 148/52 12/22 0935 64 148/52 12/22 0847 99.4 64 18 148/52 Intake & Output 12/23 0800 12/23 0000 12/22 1600 Intake Total 600 600 520 Output Total 400 Balance 600 200 520 Intake, IV 600 600 Intake, Oral 520 Number 0 Bowel Movements Output, Urine 400 Physical Exam General Appearance: Alert, Oriented X3, Cooperative Skin: No Rashes, No Breakdown HEENT: Atraumatic, PERRLA, EOMI Neck: Supple, No JVD Cardiovascular: Normal S1, Normal S2 Lungs: Clear to Auscultation, Normal Air Movement Abdomen: Normal Bowel Sounds, Soft, No Tenderness Neurological: Normal Gait, Normal Speech, Strength at 5/5 X4 Ext, Normal Tone, Sensation Intact Extremities: No Clubbing, No Cyanosis, No Edema Current Medications: Current Medications Sig/Diana Start time Last Medication Dose Route Stop Time Status Admin Acetaminophen 650 MG Q8 PRN 12/21 1445 AC 12/21 PO 1753 Amlodipine Besylate 10 MG DAILY 12/21 1506 AC 12/22 PO 0935 Apixaban 5 MG BID 12/21 1430 AC 12/22 PO 2143 Aspirin Buffered 81 MG DAILY 12/21 1430 AC 12/22 PO 0934 Atorvastatin Calcium 20 MG 1700 12/21 1700 AC 12/22 PO 1726 Calcium Carbonate 500 MG DAILY 12/22 1807 AC 12/22 PO 1820 Dextrose/Sodium 1,000 ML Q13H 12/22 1600 AC 12/23 Chloride IV 12/23 1759 0530 Doxycycline Hyclate 100 MG BID 12/22 1349 AC 12/22 PO 2144 Metoprolol Tartrate 100 MG BID 12/21 2200 AC 12/22 PO 2144 Morphine Sulfate 0.5 MG Q6 PRN 12/21 1445 AC 12/22 IV 1236 Ondansetron HCl 4 MG Q6P PRN 12/21 1445 AC IV Oxycodone HCl 5 MG Q8 PRN 12/21 1445 AC 12/21 PO 2236 Last 24 Hrs of Lab/Cj Results Last 24 Hrs of Labs/Mics: Laboratory Tests 12/23/16 0605: Anion Gap 7, Estimated GFR > 60, BUN/Creatinine Ratio 11.8, Iron 15 L, TIBC 224 L, Ferritin 265.0, Vitamin B12 413, Folate 18.7, CBC w Diff MAN DIFF ORDERED, RBC 2.94 L, MCV 89.0, MCH 30.0, RDW 13.8, MPV 9.1, Gran % 51.3, Lymphocytes % 38.7, Monocytes % 9.3, Eosinophils % 0.3, Basophils % 0.4, Absolute Granulocytes 1.6, Absolute Lymphocytes 1.2, Absolute Monocytes 0.3, Absolute Eosinophils 0, Absolute Basophils 0, Platelet Estimate DECREASED, Basophilic Stippling SLIGHT, PUBS MCHC 33.7 12/22/16 1742: Total PSA < 0.06, PT 17.4 H, INR 1.67 H, APTT 35, Fibrinogen Activity 521 H, Lyme Disease Antibody Pending Assessment/Plan Assessment: 81-year-old man with past medical history significant for atrial fibrillation on Eliquis, hypertension, hyperlipidemia, history of CABG in 1999, status post pacemaker in 2009, history of prostate cancer status post surgery 2005, brought in the emergency department by his son who noticed high-grade fever of 101 at home on 12/21/2016. Patient had progressively worsening of myalgias, arthralgias , increased back pain and right hip pain, several episodes of vomiting and a single episode of diarrhea prior to admission. He remained afebrile at admission, pulse 66, blood pressure 133/59 mmHg, on room air. Labs significant for white count of 2.0, with bandemia H&H 10/31.5, platelet of 64 (pancytopenic) . CT abdomen/pelvis didn't reveal any acute process, however demonstrates hepatic and renal cysts. At this point differentials include limes, Anaplasma, babesiosis, possible myelodysplastic syndrome although less likely. Admitted to general medicine floor Plan Pancytopenia in the setting of recent flulike symptoms * Patient feels intensely fatigued - had a low-grade temperature of 100.4 in the evening * Requested tick panel (Anaplasma PCR/Babesia PCR/lymetiter) * Empirically started on doxycycline 100 twice a day * Right hip x-ray is negative for any underlying fracture/muscle tear * Requested records from primary care physician - to understand baseline lab values as patient was not admitted previously * Hematology consulted - labs remained unremarkable, the probability of hematological reason behind the condition ruled out. * Made a call to office today, we will obtain records regarding his recent lab work. Had a conversation with [facility] in 2012 -- white count - 7,900, H&H 12.1/35.6, platelet count 223,000 No previous CBC in between Diarrhea/vomiting * Resolved - started on heart healthy diet today. * Senna for bowel movement as no BM so far. Chronic stable conditions Atrial fibrillation: Eliquis 5 mg twice a day, metoprolol 100 twice a day Hypertension: Amlodipine 10 mg daily and aspirin 81 mg daily Hyperlipidemia: Atorvastatin 20 mg daily Pain control. Tylenol/oxycodone 5 mg every 8 as needed DVT prophylaxis On Eliquis CODE STATUS Full code Problem List: 1. Fever 2. Leukopenia 3. Anemia 4. Thrombocytopenia 5. Pancytopenia 6. Hyponatremia 7. Nausea vomiting and diarrhea Pain Ratin Pain Location: back pain and right hip pain Pain Goal: Pain 4 or less Pain Plan: tylenol oxycodone Tomorrow's Labs & Rationales: cbc to monitor pancytopenia
[2016-12-23 07:49] LABS: ABSOLUTE BASOPHIL COUNT 0 /CUMM (0.0-0.2); ABSOLUTE EOSINOPHIL COUNT 0 /CUMM (0.0-0.7); ABSOLUTE GRANULOCYTE CT 1.6 /CUMM (1.4-6.5); ABSOLUTE LYMPH COUNT 1.2 /CUMM (1.2-3.4); ABSOLUTE MONOCYTE COUNT 0.3 /CUMM (0.10-0.60); BASOPHIL % 0.4 % (0.0-2.0); EOSINOPHIL % 0.3 % (0-5); GRANULOCYTE % 51.3 % (42.2-75.2); HEMATOCRIT 26.1 % (42-52); MEAN CORPUSCULAR HGB CONC 33.7 G/DL (33.0-37.0); MEAN PLATELET VOLUME 9.1 FL (7.4-10.4); PLATELET COUNT 65 /CUMM (130-400); RBC DISTRIBUTION WIDTH 13.8 % (11.5-14.5); RED BLOOD CELL CT 2.94 /CUMM (4.70-6.10)
[2016-12-23 08:24] LABS: WHITE BLOOD CELL COUNT 3.1 /CUMM (4.8-10.8)
--- NOTE | 2016-12-23 08:59 | Cons- Hematology ---
General Information and HPI Consulting Request Date of Consult: 12/23/16 Requested By: CHASE WIN MD Reason for Consult: pancytopenia Source of Information: patient, old records Exam Limitations: no limitations History of Present Illness: Mr. Acevedo is an 81-year-old male with atrial fibrillation on apixaban, HTN, CAD s/p CABG (1999) and pacemaker (2009), prostate cancer s/p resection (2005), and HLD who presented with 3 days of fever, fatigue, nausea, vomiting, diarrhea, myalgia, and overall feeling unwell. He started feeling unwell for the past week and worsening in last 3 days with flu like symptoms. He denies any sick contact. He reports some shortness of breath but no chest pain. He denies any new pain. He has not taken any new medication. He has no dizziness or headaches. He denies any insect or bug bites. He did find a tick on his hand last week. He has no pets. He reported no recent injury. On presentation to the ED, he was noted to have WBC 2000 with 10% bandemia, hematocrit of 31.5%, and platelet of 64,000. He was noted to be febrile. CT of the abdomen and pelvis was done and demontrated no significant acute intra- abdominal process. Blood work yesterday demonstrated worsening WBC down to 1600 and platelet of 52,000. Bandemia was up to 17%. Currently he is feeling better. He has been started on doxycycline and ID is seeing patient. Allergies/Medications Allergies: Coded Allergies: No Known Allergies (12/21/16) Home Med List: Acetaminophen (Tylenol Extra Strength) 500 MG TABLET 2 TAB PO Q6 PRN FEVER ( Reported) Amlodipine Besylate 10 MG TABLET 1 TAB PO DAILY HEART (Reported) Apixaban (Eliquis) 5 MG TABLET 1 TAB PO BID BLOOD THINNER (Reported) Aspirin (Ecotrin*) 81 MG TABLET. 1 TAB PO DAILY HEART HEALTH (Reported) Metoprolol Tartrate 100 MG TABLET 1 TAB PO BID HEART (Reported) Multivit-Min/FA/Lycopen/Lutein (Centrum Silver Tablet) 0.4 MG-300 MCG-250 MCG TABLET 1 TAB PO DAILY VITAMIN SUPPORT (Reported) Simvastatin (Simvastatin*) 40 MG TABLET 1 TAB PO QPM CHOLESTEROL (Reported) Current Medications: Current Medications Sig/Diana Start time Last Medication Dose Route Stop Time Status Admin Acetaminophen 650 MG Q8 PRN 12/21 1445 AC 12/21 PO 1753 Amlodipine Besylate 10 MG DAILY 12/21 1506 AC 12/22 PO 0935 Apixaban 5 MG BID 12/21 1430 AC 12/22 PO 2143 Aspirin Buffered 81 MG DAILY 12/21 1430 AC 12/22 PO 0934 Atorvastatin Calcium 20 MG 1700 12/21 1700 AC 12/22 PO 1726 Calcium Carbonate 500 MG DAILY 12/22 1807 AC 12/22 PO 1820 Dextrose/Sodium 1,000 ML Q13H 12/22 1600 AC 12/23 Chloride IV 12/23 1759 0530 Doxycycline Hyclate 100 MG BID 12/22 1349 AC 12/22 PO 2144 Metoprolol Tartrate 100 MG BID 12/21 2200 AC 12/22 PO 2144 Morphine Sulfate 0.5 MG Q6 PRN 12/21 1445 AC 12/22 IV 1236 Ondansetron HCl 4 MG Q6P PRN 12/21 1445 AC IV Oxycodone HCl 5 MG Q8 PRN 12/21 1445 AC 12/23 PO 0746 Review of Systems Review of Systems Constitutional: Reports: chills, fever, malaise, weakness. Cardiovascular: Denies: chest pain. Respiratory: Denies: cough, hemoptysis, short of breath. GI: Reports: diarrhea, nausea, vomiting. Genitourinary: Denies: dysuria. Musculoskeletal: Reports: back pain, muscle pain. Skin: Denies: rash. Neurological/Psychological: Denies: ataxia, confusion. Hematologic/Endocrine: Denies: bruising, bleeding. All Other Systems: Reviewed and Negative Past History Travel History Traveled to [place] past 21 day No Medical History Blood Transfusion Hx: Yes Neurological: NONE EENT: NONE Cardiovascular: AFIB, CAD, hypertension, hyperlipidemia Respiratory: NONE Gastrointestinal: lactose intolerance Hepatic: NONE Renal: NONE Musculoskeletal: chronic back pain Psychiatric: NONE Endocrine: NONE Blood Disorders: NONE Cancer(s): NONE Surgical History Surgical History: CABG, prostatectomy, PARATHYROID status post pacemaker Family History Relations & Conditions If Any: Relation not specified for: *No pertinent family history Psychosocial History Where Do You Live? Home Who Do You Live With? spouse Services at Home: None Primary Language: [place] Smoking Status: Former Smoker ETOH Use: denies use Illicit Drug Use: denies illicit drug use Functional Ability ADLs Independent: dressing, eating, toileting, bathing. Ambulation: independent IADLs Independent: shopping, housework, finances, food prep, telephone, transportation , medication admin. Exam & Diagnostic Data Vital Signs and I&O Vital Signs Date Time Temp Pulse Resp B/P B/P Pulse O2 O2 Flow FiO2 Mean Ox Delivery Rate 12/23 0618 98.2 63 20 138/58 93 Room Air 12/22 2240 99.6 67 20 126/50 93 Room Air 12/22 2144 67 120/50 12/22 1413 100.4 63 18 142/44 90 12/22 0935 64 148/52 12/22 0935 64 148/52 Intake & Output 12/23 1600 12/23 0800 12/23 0000 Intake Total 600 600 Output Total 400 Balance 600 200 Intake, IV 600 600 Output, Urine 400 Physical Exam General Appearance: well developed/nourished, no apparent distress, alert, awake , comfortable Eyes: Bilateral: PERRL. Ears, Nose, Throat: normal pharynx Respiratory: chest non-tender, no respiratory distress, quiet respiration Cardiovascular: regular rate/rhythm Gastrointestinal: normal bowel sounds, soft, tenderness (RUQ and epigastric) Extremities: no edema Neurologic/Psych: alert, oriented x 3 Skin: normal color, warm/dry Lymphatic: no anterior cervical alo Last 48 Hours of Lab Results: Laboratory Tests 12/23 12/22 0605 1742 Chemistry Sodium (137 - 145 mmol/L) 131 L Potassium (3.5 - 5.1 mmol/L) 3.2 L Chloride (98 - 107 mmol/L) 100 Carbon Dioxide (22 - 30 mmol/L) 25 Anion Gap (5 - 16) 7 BUN (9 - 20 mg/dL) 13 Creatinine (0.7 - 1.2 mg/dL) 1.1 Estimated GFR (>60 ml/min) > 60 BUN/Creatinine Ratio (7 - 25 %) 11.8 Iron (49 - 181 ug/dL) 15 L TIBC (261 - 462 ug/dL) 224 L Ferritin (17.9 - 464 ng/mL) Pending Total PSA (0.00 - 4.00 ng/mL) < 0.06 Vitamin B12 (239 - 931 pg/mL) Pending Folate (2.76 - 20.0 ng/mL) Pending Coagulation PT (9.4 - 12.5 SEC) 17.4 H INR (0.90 - 1.17) 1.67 H APTT (25 - 37 SEC) 35 Fibrinogen Activity (200 - 393 MG/DL) 521 H Hematology CBC w Diff MAN DIFF ORDERED WBC (4.8 - 10.8 /CUMM) 3.1 L RBC (4.70 - 6.10 /CUMM) 2.94 L Hgb (14.0 - 18.0 G/DL) 8.8 L Hct (42 - 52 %) 26.1 L MCV (80.0 - 94.0 FL) 89.0 MCH (27.0 - 31.0 PG) 30.0 RDW (11.5 - 14.5 %) 13.8 Plt Count (130 - 400 /CUMM) 65 L MPV (7.4 - 10.4 FL) 9.1 Gran % (42.2 - 75.2 %) 51.3 Lymphocytes % (20.5 - 51.1 %) 38.7 Monocytes % (1.7 - 9.3 %) 9.3 Eosinophils % (0 - 5 %) 0.3 Basophils % (0.0 - 2.0 %) 0.4 Absolute Granulocytes (1.4 - 6.5 /CUMM) 1.6 Segmented Neutrophils (42.2 - 75.2 %) Pending Absolute Lymphocytes (1.2 - 3.4 /CUMM) 1.2 Absolute Monocytes (0.10 - 0.60 /CUMM) 0.3 Absolute Eosinophils (0.0 - 0.7 /CUMM) 0 Absolute Basophils (0.0 - 0.2 /CUMM) 0 PUBS MCHC (33.0 - 37.0 G/DL) 33.7 Serology Lyme Disease Antibody Pending 12/22 12/21 0640 1136 Chemistry Sodium (137 - 145 mmol/L) 132 L Potassium (3.5 - 5.1 mmol/L) 3.9 Chloride (98 - 107 mmol/L) 102 Carbon Dioxide (22 - 30 mmol/L) 25 Anion Gap (5 - 16) 5 BUN (9 - 20 mg/dL) 14 Creatinine (0.7 - 1.2 mg/dL) 1.1 Estimated GFR (>60 ml/min) > 60 BUN/Creatinine Ratio (7 - 25 %) 12.7 Magnesium (1.6 - 2.3 mg/dL) 1.7 Hematology CBC w Diff MAN DIFF ORDERED MAN DIFF ORDERED WBC (4.8 - 10.8 /CUMM) 1.6 L 2.0 L RBC (4.70 - 6.10 /CUMM) 3.29 L 3.54 L Hgb (14.0 - 18.0 G/DL) 10.0 L 10.8 L Hct (42 - 52 %) 29.2 L 31.5 L MCV (80.0 - 94.0 FL) 88.8 89.0 MCH (27.0 - 31.0 PG) 30.5 30.6 RDW (11.5 - 14.5 %) 14.1 13.9 Plt Count (130 - 400 /CUMM) 52 L 64 L MPV (7.4 - 10.4 FL) 8.6 8.1 Gran % (42.2 - 75.2 %) 53.4 72.0 Lymphocytes % (20.5 - 51.1 %) 31.6 17.0 L Monocytes % (1.7 - 9.3 %) 14.4 H 10.9 H Eosinophils % (0 - 5 %) 0.4 0.1 Basophils % (0.0 - 2.0 %) 0.2 0 L Absolute Granulocytes (1.4 - 6.5 /CUMM) 0.9 L 1.4 Segmented Neutrophils (42.2 - 75.2 %) 41 L 63 Band Neutrophils (0.0 - 5.0 %) 17 H 10 H Absolute Lymphocytes (1.2 - 3.4 /CUMM) 0.5 L 0.3 L Lymphocytes (20.5 - 51.1 %) 31 21 Monocytes (1.7 - 9.3 %) 11 H 4 Absolute Monocytes (0.10 - 0.60 /CUMM) 0.2 0.2 Absolute Eosinophils (0.0 - 0.7 /CUMM) 0 0 Basophils (0.0 - 2.0 %) 2 Absolute Basophils (0.0 - 0.2 /CUMM) 0 0 Platelet Estimate (ADEQUATE) DECREASED DECREASED Polychromasia 1+ Poikilocytosis 1+ 1+ Ovalocytes 1+ 1+ PUBS MCHC (33.0 - 37.0 G/DL) 34.3 34.3 Retic Count (0.5 - 2.0 %) 2.76 H 12/21 12/21 1130 1127 Chemistry Sodium (137 - 145 mmol/L) 131 L Potassium (3.5 - 5.1 mmol/L) 3.6 Chloride (98 - 107 mmol/L) 98 Carbon Dioxide (22 - 30 mmol/L) 24 Anion Gap (5 - 16) 9 BUN (9 - 20 mg/dL) 20 Creatinine (0.7 - 1.2 mg/dL) 1.3 H Estimated GFR (>60 ml/min) 53 L BUN/Creatinine Ratio (7 - 25 %) 15.4 Glucose (65 - 99 mg/dL) 144 H Calcium (8.4 - 10.2 mg/dL) 8.6 Total Bilirubin (0.2 - 1.3 mg/dL) 0.7 AST (17 - 59 U/L) 79 H ALT (21 - 72 U/L) 62 Alkaline Phosphatase (< 127 U/L) 35 Total Protein (6.3 - 8.2 g/dL) 6.1 L Albumin (3.5 - 5.0 g/dL) 3.4 L Globulin (1.9 - 4.2 gm/dL) 2.7 Albumin/Globulin Ratio (1.1 - 2.2 %) 1.3 Lipase (23 - 300 U/L) 325 H Urines Urinalysis MOD H Urine Color (YEL,AMB,STR) KRISTIN Urine Clarity (CLEAR) CLDY H Urine pH (5.0 - 8.0) 6.0 Ur Specific [place] (1.001 - 1.035) 1.025 Urine Protein (NEG,<30 MG/DL) >=300 H Urine Ketones (NEG) NEG Urine Nitrite (NEG) NEG Urine Bilirubin (NEG) NEG@ICTO Urine Urobilinogen (0.1 - 1.0 EU/dl) 0.2 Ur Leukocyte Esterase (NEG) NEG Ur Microscopic SEDIMENT EXAMINED Urine RBC (0 - 5 /HPF) 1-3 Urine WBC (0 - 2 /HPF) RARE Ur Epithelial Cells (NONE,FEW) FEW Urine Bacteria (NEG/NONE) FEW H Granular Casts (NONE /LPF) FEW H Urine Mucus (FEW,NONE) MOD H Urine Hemoglobin (NEG) MOD H Urine Glucose (N MG/DL) NEG Imaging/Other Studies: Abdomen/pelvis CT 12/21/2016: 1. No evidence of an acute intra-abdominal process. 2. Trace amount of intraperitoneal free fluid in the deep pelvis. 3. Multiple parapelvic renal cysts with a probable single small left cortical cyst and small left renal calculus without hydronephrosis. 4. Probable small hepatic cyst. Ultrasound could be performed to confirm these findings. 5. There are postsurgical and procedural changes as noted. Assessment/Plan Assessment: Mr. Acevedo is an 81-year-old male with atrial fibrillation on apixaban, HTN, CAD s/p CABG (1999) and pacemaker (2009), prostate cancer s/p resection (2005), and HLD who presented with 3 days of fever, fatigue, nausea, vomiting, diarrhea, myalgia, and overall feeling unwell. He is noted to be pancytopenic with bandemia. Peripheral blood smear from 12/22/2016 was reviewed by me this morning and noted bandemia and large sized platelets. No schistocyte seen. His presentation is concerning for infectious etiology. His pancytopenia is likely related to this process. Tick-borne illness is at the top of the differential at the moment. Viral syndrome is also likely from the presentation. Lyme, Anaplasma, and Babesia are being evaluated. He is on doxycycline at the moment. WBC is improved today. Hemoglobin and hematocrit are slightly improved. Platelet count is slight improved. This is reassuring. Pancytopenia may also be related to malignancy with his history of prostate cancer especially with marrow involvement. PSA is undetectable which makes prostate cancer metastasis less likely. DIC evaluation is negative so far. For now, he can be monitored. Recommendations: 1. Evaluation for tick-borne illness as per ID 2. Continue current antibiotic as per ID 3. Monitor CBC with differential daily 4. Transfuse platelet if <10,000 or <20,000 with fever 5. Obtain previous outpatient lab records Problem List: 1. Nausea vomiting and diarrhea 2. Fever 3. Pancytopenia Other Findings/Comments: Please call [phone] with any questions or concerns. Consult Acknowledgment - Thank you for your consult request.
--- NOTE | 2016-12-23 09:44 | Patient Discharge Instructions ---
Discharge Instructions General Discharge Information You were seen/treated for: Tick borne illness Special Instructions: Please follow up with PCP in a week Please take your medications regularly Diet Continue normal diet: Yes Recommended Diet: Heart Healthy Activity Full Activity/No Limits: Yes Activity Self Limited: Yes Acute Coronary Syndrome Inclusion Criteria At DC or during hospital stay patient has or had the following: ACS DIAGNOSIS No Discharge Core Measures Meds if any: Prescribed or Continued at Discharge Meds if any: NOT Prescribed or Continued at Discharge Congestive Heart Failure Inclusion Criteria At DC or during hospital stay patient has or had the following: CHF DIAGNOSIS No Discharge Core Measures Meds if any: Prescribed or Continued at Discharge Meds if any: NOT Prescribed or Continued at Discharge Cerebrovascular accident Inclusion Criteria At DC or during hospital stay patient has or had the following: CVA/TIA Diagnosis No Discharge Core Measures Meds if any: Prescribed or Continued at Discharge Meds if any: NOT Prescribed or Continued at Discharge Venous thromboembolism Inclusion Criteria VTE Diagnosis No VTE Type NONE VTE Confirmed by (Test) NONE Discharge Core Measures - Per Current guidelines, there needs to be overlap - treatment for the first 5 days of Warfarin therapy. - If discharged on Warfarin prior to 5 days of - overlap therapy, the patient will need to be - assessed for post discharge needs including - *Post discharge parental anticoagulation - *Warfarin and/or parental anticoagulation education - *Follow up date to check INR post discharge At least 5 days overlap therapy as Inpatient No Meds if any: Prescribed or Continued at Discharge Note: Overlap Therapy is Warfarin and Anticoagulant Meds if any: NOT Prescribed or Continued at Discharge
--- NOTE | 2016-12-23 10:48 | PN- Infect Dx ---
Subjective Subjective: MAXIMUM TEMPERATURE 100.4. He feels improved on oxycodone, with decreased lower back pain and decreased myalgias/arthralgias. He does not report any headache. Objective Last 24 Hrs of Vital Signs/I&O Vital Signs Date Time Temp Pulse Resp B/P B/P Pulse O2 O2 Flow FiO2 Mean Ox Delivery Rate 12/23 1030 63 130/50 12/23 1030 63 130/50 12/23 0618 98.2 63 20 138/58 93 Room Air 12/22 2240 99.6 67 20 126/50 93 Room Air 12/22 2144 67 120/50 12/22 1413 100.4 63 18 142/44 90 Intake & Output 12/23 1600 12/23 0800 12/23 0000 Intake Total 600 600 Output Total 400 Balance 600 200 Intake, IV 600 600 Output, Urine 400 Physical Exam Other Physical Findings: He appears more comfortable in no acute distress Lungs are clear Heart regular rhythm with a 1/6 systolic ejection murmur Results Last 24 Hours of Lab Results: Laboratory Tests 12/23 12/22 0605 1742 Chemistry Sodium (137 - 145 mmol/L) 131 L Potassium (3.5 - 5.1 mmol/L) 3.2 L Chloride (98 - 107 mmol/L) 100 Carbon Dioxide (22 - 30 mmol/L) 25 Anion Gap (5 - 16) 7 BUN (9 - 20 mg/dL) 13 Creatinine (0.7 - 1.2 mg/dL) 1.1 Estimated GFR (>60 ml/min) > 60 BUN/Creatinine Ratio (7 - 25 %) 11.8 Iron (49 - 181 ug/dL) 15 L TIBC (261 - 462 ug/dL) 224 L Ferritin (17.9 - 464 ng/mL) 265.0 Total PSA (0.00 - 4.00 ng/mL) < 0.06 Vitamin B12 (239 - 931 pg/mL) 413 Folate (2.76 - 20.0 ng/mL) 18.7 Coagulation PT (9.4 - 12.5 SEC) 17.4 H INR (0.90 - 1.17) 1.67 H APTT (25 - 37 SEC) 35 Fibrinogen Activity (200 - 393 MG/DL) 521 H Hematology CBC w Diff MAN DIFF ORDERED WBC (4.8 - 10.8 /CUMM) 3.1 L RBC (4.70 - 6.10 /CUMM) 2.94 L Hgb (14.0 - 18.0 G/DL) 8.8 L Hct (42 - 52 %) 26.1 L MCV (80.0 - 94.0 FL) 89.0 MCH (27.0 - 31.0 PG) 30.0 RDW (11.5 - 14.5 %) 13.8 Plt Count (130 - 400 /CUMM) 65 L MPV (7.4 - 10.4 FL) 9.1 Gran % (42.2 - 75.2 %) 51.3 Lymphocytes % (20.5 - 51.1 %) 38.7 Monocytes % (1.7 - 9.3 %) 9.3 Eosinophils % (0 - 5 %) 0.3 Basophils % (0.0 - 2.0 %) 0.4 Absolute Granulocytes (1.4 - 6.5 /CUMM) 1.6 Absolute Lymphocytes (1.2 - 3.4 /CUMM) 1.2 Absolute Monocytes (0.10 - 0.60 /CUMM) 0.3 Absolute Eosinophils (0.0 - 0.7 /CUMM) 0 Absolute Basophils (0.0 - 0.2 /CUMM) 0 Platelet Estimate (ADEQUATE) DECREASED Basophilic Stippling SLIGHT PUBS MCHC (33.0 - 37.0 G/DL) 33.7 Serology Lyme Disease Antibody Pending Last 24 Hours of Cj Results: Urine culture December 21 negative Recent Imaging Studies: X-ray of the right hip reveals some irregularity of the lateral femoral head neck junction with degenerative changes at the hip joint X-ray of the lumbar spine reveals vertebral spurring and moderate facet arthropathy Assessment/Plan Impression: Appears improved, with decreased myalgias and headaches, possibly in part secondary to the oxycodone, which appears to have improved his low back pain as well, with white blood cell count and platelet count increasing on Doxycycline, begun yesterday for the possibility of Anaplasma. His H&H, however, have decreased, suggesting the possibility of another process, either co-infection with Babesia or a noninfectious etiology, as Anaplasma does not typically affect this cell line. Suggestion: 1. Await medical records regarding his baseline CBC 2. Review peripheral smear for evidence of morulae within the white blood cells 3. Follow-up PCR for Anaplasma and Babesia 4. Follow-up Lyme titer 5. Continue Doxycycline
[2016-12-23 13:57] VITALS: BP 132/70
[2016-12-23 22:47] VITALS: BP 130/70
[2016-12-24 06:49] VITALS: BP 118/53
--- NOTE | 2016-12-24 07:43 | PN- Housestaff ---
NORMA AGUILAR,MERCEDES 12/24/16 0742: Subjective Follow-up For: POSSIBLE LYMES VS ANAPLASMA PANCYTOPENIA Subjective: I saw and examined the patient today morning He is doing much better in terms of fatigue. He reports pain with moving his right hip and feels oxycontine doesnt really resolve it completely. He did have a rough night. He denies any episodes of nause/vomiting however he didnt have a bowel movement for the past 4 days. Review of Systems Constitutional: Reports: see HPI. Objective Last 24 Hrs of Vital Signs/I&O Vital Signs Date Time Temp Pulse Resp B/P B/P Pulse O2 O2 Flow FiO2 Mean Ox Delivery Rate 12/24 0649 97.8 60 20 118/53 95 Room Air 12/23 2247 98.6 63 18 130/70 95 Room Air 12/23 2151 63 130/70 12/23 1357 98.3 74 20 132/70 96 Room Air 12/23 1030 63 130/50 12/23 1030 63 130/50 Intake & Output 12/24 0800 12/24 0000 12/23 1600 Intake Total 1170 Output Total Balance 1170 Intake, IV 450 Intake, Oral 720 Physical Exam General Appearance: Alert, Oriented X3, Cooperative, No Acute Distress Skin: No Rashes, No Breakdown HEENT: Atraumatic, PERRLA, EOMI Neck: Supple Cardiovascular: Normal S1, Normal S2 Lungs: Clear to Auscultation, Normal Air Movement Abdomen: Normal Bowel Sounds, Soft, No Tenderness Current Medications: Current Medications Sig/Diana Start time Last Medication Dose Route Stop Time Status Admin Acetaminophen 650 MG Q8 PRN 12/21 1445 AC 12/21 PO 1753 Amlodipine Besylate 10 MG DAILY 12/21 1506 AC 12/23 PO 1030 Apixaban 5 MG BID 12/21 1430 AC 12/23 PO 2151 Aspirin Buffered 81 MG DAILY 12/21 1430 AC 12/23 PO 1030 Atorvastatin Calcium 20 MG 1700 12/21 1700 AC 12/23 PO 1601 Calcium Carbonate 500 MG DAILY 12/22 1807 AC 12/24 PO 0622 Dextrose/Sodium 1,000 ML Q13H 12/22 1600 DC 12/23 Chloride IV 12/23 1759 0530 Doxycycline Hyclate 100 MG BID 12/22 1349 AC 12/23 PO 2151 Metoprolol Tartrate 100 MG BID 12/21 2200 AC 12/23 PO 2151 Morphine Sulfate 0.5 MG Q6 PRN 12/21 1445 AC 12/23 IV 2151 Ondansetron HCl 4 MG Q6P PRN 12/21 1445 AC IV Oxycodone HCl 5 MG Q8 PRN 12/21 1445 AC 12/24 PO 0619 Potassium Chloride 40 MEQ ONCE ONE 12/23 1015 DC 12/23 PO 12/23 1016 1031 Senna/Docusate Sodium 1 TAB ONCE ONE 12/23 1345 DC 12/23 PO 12/23 1346 1451 Last 24 Hrs of Lab/Cj Results Last 24 Hrs of Labs/Mics: Laboratory Tests 12/24/16 0715: CBC w Diff Pending, WBC Pending, RBC Pending, Hgb Pending, Hct Pending, MCV Pending, MCH Pending, RDW Pending, Plt Count Pending, MPV Pending, PUBS MCHC Pending Assessment/Plan Assessment: 81-year-old man with past medical history significant for atrial fibrillation on Eliquis, hypertension, hyperlipidemia, history of CABG in 1999, status post pacemaker in 2009, history of prostate cancer status post surgery 2005, brought in the emergency department by his son who noticed high-grade fever of 101 at home on 12/21/2016. Patient had progressively worsening of myalgias, arthralgias , increased back pain and right hip pain, several episodes of vomiting and a single episode of diarrhea prior to admission. He remained afebrile at admission, pulse 66, blood pressure 133/59 mmHg, on room air. Labs significant for white count of 2.0, with bandemia H&H 10/31.5, platelet of 64 (pancytopenic) . CT abdomen/pelvis didn't reveal any acute process, however demonstrates hepatic and renal cysts. At this point differentials include limes, Anaplasma, babesiosis, possible myelodysplastic syndrome although less likely. 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 * Lyme titers negative with PCR babesia/anaplasma still pending. * Continue doxycycline 100 twice a day for a total course of 10days. * Right hip x-ray is negative for any underlying fracture/muscle tear, as pain is improving with oxycodone, discharged with short course of oxycodone. * Hematology consulted - labs remained unremarkable, the probability of hematological reason behind the condition ruled out. * Stable for discharge today. Had a conversation with Dr.Swanson Sandoval Labs in 2012 -- white count - 7,900, H&H 12.1/35.6, platelet count 223,000 No previous CBC in between Diarrhea/vomiting * Resolved - started on heart healthy diet today. * Senna for bowel movement as no BM so far. Chronic stable conditions Atrial fibrillation: Eliquis 5 mg twice a day, metoprolol 100 twice a day Hypertension: Amlodipine 10 mg daily and aspirin 81 mg daily Hyperlipidemia: Atorvastatin 20 mg daily Pain control. Tylenol/oxycodone 5 mg every 8 as needed DVT prophylaxis On Eliquis CODE STATUS Full code Problem List: 1. Nausea vomiting and diarrhea 2. Leukopenia 3. Anemia 4. Thrombocytopenia 5. Hyponatremia 6. Pancytopenia Pain Ratin Pain Location: right hip Pain Goal: Pain 4 or less Pain Plan: tylenol oxycodone Tomorrow's Labs & Rationales: none CHASE WIN MD 12/24/16 1116: Attending MD Review Statement Attending Statement Attending MD Statement: examined this patient, discuss w/resident/PA/RECEPTIONIST NURSE, agreed w/resident/PA/RECEPTIONIST NURSE, reviewed EMR data (avail) Attending Assessment/Plan: 81M PMH atrial fibrillation on Eliquis, hypertension, hyperlipidemia, history of CABG in 1999, status post pacemaker in 2009, history of prostate cancer status post surgery 2005 with 3-4 days of nausea, vomiting, and diarrhea, febrile to 101. Patient is weak and dehydrated, generalized weakness and difficulty ambulating and with ADLs due to illness. Soft abdomen, no bloody stool, no recent travel or sick contacts. Mildly tachycardic in ED, BP normal. Labs show pancytopenia, CKD stage II. Patient feels much better today. He has much more energy and his appetiite has returned. Physical exam is normal. Blood counts all increased. 1. Acute gastroenteritis 2. Dehydration 3. Generalized weakness 4. Pancytopenia 5. CKD stage II 6. Chronic atrial fibrillation Plan - Stable for discharge - Follow up Lyme, Anaplasma, Babesia labs as outpatient - Follow ID recommendations for Doxycycline dosing - Continue home medications AMMY BARNES 12/24/16 1334: Assessment/Plan Assessment: Resident statement: Lyme's titre negative. 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 Will follow up on serologies. Improving Gastroenteritis. Improving Gastroenteritis.
--- NOTE | 2016-12-24 08:02 | PN- Student ---
Subjective Subjective: Patient was seen and examined this morning. Patient is still having pain in his right hip. He describes it as a sharp pain that is worse with movement and is better when lying still. Pain was originally a 9/10 and with the first dose of oxycodone it was a 4-5/10 but this morning it is a 6-7/10. Patient states that he doesn't think oxycodone is "strong enough" and working after 1st dose. Back pain is a 3/10 today and is less painful than the rip hip. Pain does not radiate. He states that his back pain is likely related to helping his with Alzheimer's by picking her up and moving her around. Patient feels less fatigued today but feels that he is still feeling tired due to being in bed since he was very active at home. He was able to walk around yesterday with no issues. No pain with weight baring. Patient was started on a bowel regimen yesterday but hasn't had a bowel movement yet. He also states that he hasn't been drinking a lot of fluids and doesn't think he drinks enough at home as well. Denies chest pain, abdominal pain, pyrosis, nausea, vomiting, chills, night sweats, arthralgias. 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 Remains active with house and yard work. Former smoker, stopped smoking 33 years ago (48 years old) - 34 pack year hx. Denies alcohol use, illicit drug use. Has noticed abdominal discomfort and pain within the last 6 months with dairy. Thinks he may be lactose intolerant. Past week, son has been bringing home food. He states doesn't drink enough water. Current Medications Sig/Diana Start time Last Medication Dose Route Stop Time Status Admin Acetaminophen 650 MG Q8 PRN 12/21 1445 AC 12/21 PO 1753 Amlodipine Besylate 10 MG DAILY 12/21 1506 AC 12/23 PO 1030 Apixaban 5 MG BID 12/21 1430 AC 12/23 PO 2151 Aspirin Buffered 81 MG DAILY 12/21 1430 AC 12/23 PO 1030 Atorvastatin Calcium 20 MG 1700 12/21 1700 AC 12/23 PO 1601 Calcium Carbonate 500 MG DAILY 12/22 1807 AC 12/24 PO 0622 Dextrose/Sodium 1,000 ML Q13H 12/22 1600 DC 12/23 Chloride IV 12/23 1759 0530 Doxycycline Hyclate 100 MG BID 12/22 1349 AC 12/23 PO 2151 Metoprolol Tartrate 100 MG BID 12/21 2200 AC 12/23 PO 2151 Morphine Sulfate 0.5 MG Q6 PRN 12/21 1445 AC 12/23 IV 2151 Ondansetron HCl 4 MG Q6P PRN 12/21 1445 AC IV Oxycodone HCl 5 MG Q8 PRN 12/21 1445 AC 12/24 PO 0619 Potassium Chloride 40 MEQ ONCE ONE 12/23 1015 DC 12/23 PO 12/23 1016 1031 Senna/Docusate Sodium 1 TAB ONCE ONE 12/23 1345 DC 12/23 PO 12/23 1346 1451 Objective Objective: Physical Exam: General: alert and oriented x3. no acute distress Skin: no rashes, pallor, jaundice, or cyanosis Head: NC/AT Lungs: clear to auscultation. no wheezing, crackles, rhonchi. Heart: regular rate and rhythm. no murmurs, gallops, rubs. Abdomen: soft, nontender. normoactive bowel sounds. no tenderness to palpation. Extremities: no edema, erythema, or cyanosis. Pain in right hip upon elevation of right leg. Tenderness upon palpation of right hip. Vital Signs Date Time Temp Pulse Resp B/P B/P Pulse O2 O2 Flow FiO2 Mean Ox Delivery Rate 12/24 0649 97.8 60 20 118/53 95 Room Air 12/23 2247 98.6 63 18 130/70 95 Room Air 12/23 2151 63 130/70 12/23 1357 98.3 74 20 132/70 96 Room Air 12/23 1030 63 130/50 12/23 1030 63 130/50 Hip x-ray (12/22/16): 1. Limited assessment of right hip with irregularities at the lateral femoral head neck junction most likely related to technique and underlying varus deformity of the hip and degenerative changes. Close clinical correlation is requested to assess if there is a clinical change since the CT scan from yesterday, which had revealed no acute fracture of the right hip. If there is a change, would recommend dedicated 2 view right hip films for further assessment. 2. No acute fracture in the lumbar spine. 3. Moderate vertebral spondylosis and facet arthropathy throughout the lumbar spine. 4. Dense atherosclerotic calcifications of the aorta and branch vessels. Results Results: Laboratory Tests 12/24/16 0920: Sodium Pending, Potassium Pending, Chloride Pending, Carbon Dioxide Pending, Anion Gap Pending, BUN Pending, Creatinine Pending, BUN/Creatinine Ratio Pending 12/24/16 0715: CBC w Diff NO MAN DIFF REQ, RBC 3.11 L, MCV 87.4, MCH 30.3, RDW 13.9, MPV 7.8, Gran % 52.9, Lymphocytes % 37.3, Monocytes % 7.2, Eosinophils % 1.9, Basophils % 0.7, Absolute Granulocytes 2.1, Absolute Lymphocytes 1.5, Absolute Monocytes 0.3 , Absolute Eosinophils 0.1, Absolute Basophils 0, PUBS MCHC 34.7 12/23/16 0605: Anion Gap 7, Estimated GFR > 60, BUN/Creatinine Ratio 11.8, Iron 15 L, TIBC 224 L, Ferritin 265.0, Vitamin B12 413, Folate 18.7, CBC w Diff MAN DIFF ORDERED, RBC 2.94 L, MCV 89.0, MCH 30.0, RDW 13.8, MPV 9.1, Gran % 51.3, Lymphocytes % 38.7, Monocytes % 9.3, Eosinophils % 0.3, Basophils % 0.4, Absolute Granulocytes 1.6, Absolute Lymphocytes 1.2, Absolute Monocytes 0.3, Absolute Eosinophils 0, Absolute Basophils 0, Platelet Estimate DECREASED, Basophilic Stippling SLIGHT, PUBS MCHC 33.7 12/22/16 1742: Total PSA < 0.06, PT 17.4 H, INR 1.67 H, APTT 35, Fibrinogen Activity 521 H, Lyme Disease Antibody 0.22 12/22/16 1000: A.phagocytophil DNA PCR Pending, Babesia microti DNA PCR Pending 12/22/16 0640: Anion Gap 5, Estimated GFR > 60, BUN/Creatinine Ratio 12.7, Magnesium 1.7, CBC w Diff MAN DIFF ORDERED, RBC 3.29 L, MCV 88.8, MCH 30.5, RDW 14.1, MPV 8.6, Gran % 53.4, Lymphocytes % 31.6, Monocytes % 14.4 H, Eosinophils % 0.4, Basophils % 0.2, Absolute Granulocytes 0.9 L, Segmented Neutrophils 41 L, Band Neutrophils 17 H, Absolute Lymphocytes 0.5 L, Lymphocytes 31, Monocytes 11 H, Absolute Monocytes 0.2, Absolute Eosinophils 0, Absolute Basophils 0, Platelet Estimate DECREASED, Poikilocytosis 1+, Ovalocytes 1+, PUBS MCHC 34.3 12/21/16 1136: CBC w Diff MAN DIFF ORDERED, RBC 3.54 L, MCV 89.0, MCH 30.6, RDW 13.9, MPV 8.1, Gran % 72.0, Lymphocytes % 17.0 L, Monocytes % 10.9 H, Eosinophils % 0.1, Basophils % 0 L, Absolute Granulocytes 1.4, Segmented Neutrophils 63, Band Neutrophils 10 H, Absolute Lymphocytes 0.3 L, Lymphocytes 21, Monocytes 4, Absolute Monocytes 0.2, Absolute Eosinophils 0, Basophils 2, Absolute Basophils 0, Platelet Estimate DECREASED, Polychromasia 1+, Poikilocytosis 1+, Ovalocytes 1+, PUBS MCHC 34.3, Retic Count 2.76 H 12/21/16 1130: Anion Gap 9, Estimated GFR 53 L, BUN/Creatinine Ratio 15.4, Glucose 144 H, Calcium 8.6, Total Bilirubin 0.7, AST 79 H, ALT 62, Alkaline Phosphatase 35, Total Protein 6.1 L, Albumin 3.4 L, Globulin 2.7, Albumin/Globulin Ratio 1.3, Lipase 325 H 12/21/16 1127: Urinalysis MOD H, Urine Color KRISTIN, Urine Clarity CLDY H, Urine pH 6.0, Ur Specific [place] 1.025, Urine Protein >=300 H, Urine Ketones NEG, Urine Nitrite NEG, Urine Bilirubin NEG@ICTO, Urine Urobilinogen 0.2, Ur Leukocyte Esterase NEG , Ur Microscopic SEDIMENT EXAMINED, Urine RBC 1-3, Urine WBC RARE, Ur Epithelial Cells FEW, Urine Bacteria FEW H, Granular Casts FEW H, Urine Mucus MOD H, Urine Hemoglobin MOD H, Urine Glucose NEG Microbiology 12/21 1436 BLOOD: Blood Culture - CAN Cancelled: SPECIMEN NOT RECEIVED IN LABORATORY 12/21 1436 BLOOD: Blood Culture - CAN Cancelled: SPECIMEN NOT RECEIVED IN LABORATORY 12/21 1427 STOOL: Cryptosporidium Antigen - CAN Cancelled: SPECIMEN NOT RECEIVED IN LABORATORY 12/21 1427 STOOL: Giardia Antigen (DEBBIE) - CAN Cancelled: SPECIMEN NOT RECEIVED IN LABORATORY 12/21 1127 URINE ROUT: Urine Culture - COMP Assessment/Plan Assessment: Assessment and Plan: 81 yo male with PMHx of a.fib, HTN, HLD, CABG, prostate cancer, presented on with fever of 101, myalgias, arthralgias, back and hip pain, vomiting, and diarrhea. PE significant for pain in right hip with elevation of right leg. Patient is afebrile, normotensive. Labs upon admission showed pancytopenia. This morning, labs show that WBC and Plt are trending upward as well as H/H and RBCs. 1. Pancytopenia * Patient presented with fatigue, fever, myalgias, arthralgias. * Awaiting titers on Anaplasma and Babesiosis. Lyme titer is negative. * Vit B12 and folate levels are within normal limits. PSA level is WNL. Signs, symptoms and labs do not suggest multiple myeloma, lymphoma, or leukemia. * Hematology consult ruled out any heme causes. * Doxycycline, 100 mg BID PO, day 3. Awaiting ID recommendation for course of abx. 2. Pain * Currently on oxycodone 5 mg PO q 8 hours PRN. Lidocaine patch to be added. * X-ray of R hip was negative for fractures. * Differential for hip pain includes: secondary to pancytopenia, osteoarthritis, labral tear, fracture, osteopenia/osteoporosis. * Follow up with PCP if pain persists as well as repeat x-ray of hip. Can consider pain management, bone mineral density scan outpatient. 3. Chronic conditions - HTN, HLD, a.fib * Continue home medications
[2016-12-24 08:45] LABS: ABSOLUTE BASOPHIL COUNT 0 /CUMM (0.0-0.2); ABSOLUTE EOSINOPHIL COUNT 0.1 /CUMM (0.0-0.7); ABSOLUTE LYMPH COUNT 1.5 /CUMM (1.2-3.4); ABSOLUTE MONOCYTE COUNT 0.3 /CUMM (0.10-0.60)
[2016-12-24 08:54] LABS: ABSOLUTE GRANULOCYTE CT 2.1 /CUMM (1.4-6.5); BASOPHIL % 0.7 % (0.0-2.0); EOSINOPHIL % 1.9 % (0-5); GRANULOCYTE % 52.9 % (42.2-75.2); HEMATOCRIT 27.1 % (42-52); MEAN CORPUSCULAR HGB 30.3 PG (27.0-31.0); MEAN CORPUSCULAR HGB CONC 34.7 G/DL (33.0-37.0); MEAN CORPUSCULAR VOLUME 87.4 FL (80.0-94.0); MEAN PLATELET VOLUME 7.8 FL (7.4-10.4); RBC DISTRIBUTION WIDTH 13.9 % (11.5-14.5); RED BLOOD CELL CT 3.11 /CUMM (4.70-6.10); WHITE BLOOD CELL COUNT 3.9 /CUMM (4.8-10.8)
[2016-12-24 09:45] LABS: PLATELET COUNT 109 /CUMM (130-400)
[2016-12-24] MEDS ORDERED: DOXYCYCLINE HY100 M2 PO ×2 (12:12→12:33)
[2016-12-24] MEDS ORDERED: OXYCODONE HCL5 M1 PO ×2 (12:15→14:06)
--- NOTE | 2016-12-24 12:40 | PN- Infect Dx ---
Subjective Subjective: Afebrile. He feels better though continues to require Oxycodone. Objective Last 24 Hrs of Vital Signs/I&O Vital Signs Date Time Temp Pulse Resp B/P B/P Pulse O2 O2 Flow FiO2 Mean Ox Delivery Rate 12/24 0856 60 118/53 12/24 0856 60 118/53 12/24 0649 97.8 60 20 118/53 95 Room Air 12/23 2247 98.6 63 18 130/70 95 Room Air 12/23 2151 63 130/70 12/23 1357 98.3 74 20 132/70 96 Room Air Intake & Output 12/24 1600 12/24 0800 12/24 0000 Intake Total Output Total Balance Patient 180 lb Weight Physical Exam Other Physical Findings: He appears comfortable in no acute distress Exam without change Results Last 24 Hours of Lab Results: Laboratory Tests 12/24 12/24 0920 0715 Chemistry Sodium (137 - 145 mmol/L) 137 Potassium (3.5 - 5.1 mmol/L) 3.7 Chloride (98 - 107 mmol/L) 101 Carbon Dioxide (22 - 30 mmol/L) 26 Anion Gap (5 - 16) 10 BUN (9 - 20 mg/dL) 14 Creatinine (0.7 - 1.2 mg/dL) 1.2 Estimated GFR (>60 ml/min) 58 L BUN/Creatinine Ratio (7 - 25 %) 11.7 Hematology CBC w Diff NO MAN DIFF REQ WBC (4.8 - 10.8 /CUMM) 3.9 L RBC (4.70 - 6.10 /CUMM) 3.11 L Hgb (14.0 - 18.0 G/DL) 9.4 L Hct (42 - 52 %) 27.1 L MCV (80.0 - 94.0 FL) 87.4 MCH (27.0 - 31.0 PG) 30.3 RDW (11.5 - 14.5 %) 13.9 Plt Count (130 - 400 /CUMM) 109 L MPV (7.4 - 10.4 FL) 7.8 Gran % (42.2 - 75.2 %) 52.9 Lymphocytes % (20.5 - 51.1 %) 37.3 Monocytes % (1.7 - 9.3 %) 7.2 Eosinophils % (0 - 5 %) 1.9 Basophils % (0.0 - 2.0 %) 0.7 Absolute Granulocytes (1.4 - 6.5 /CUMM) 2.1 Absolute Lymphocytes (1.2 - 3.4 /CUMM) 1.5 Absolute Monocytes (0.10 - 0.60 /CUMM) 0.3 Absolute Eosinophils (0.0 - 0.7 /CUMM) 0.1 Absolute Basophils (0.0 - 0.2 /CUMM) 0 PUBS MCHC (33.0 - 37.0 G/DL) 34.7 Lyme titer negative Last 24 Hours of Cj Results: No cultures Assessment/Plan Impression: Continues to improve, with decreased myalgias, though he continues to have low back and right hip pain, with white blood cell count and platelet count continuing to increase on Doxycycline, Day 2 of treatment for possible Anaplasma. His H&H has also increased. His most recent blood work from 4 years prior to admission revealed a normal CBC. Suggestion: 1. Follow-up PCR for Anaplasma and Babesia 2. Continue Doxycycline to complete a 10 day course
--- NOTE | 2016-12-24 12:41 | PN- Hematology ---
Subjective Subjective: He is feeling well. His energy is improved. He has no new fever or chills. Hip pain and back pain still persist. Review of Systems: Constitutional: Reports: chills, fever, malaise, weakness. Cardiovascular: Denies: chest pain. Respiratory: Denies: cough, hemoptysis, short of breath. GI: Denies: diarrhea, nausea, vomiting. Musculoskeletal: Reports: back pain, muscle pain. Neurological/Psychological: Denies: ataxia, confusion. All Other Systems: Reviewed and Negative Objective Vital Signs and I&Os Vital Signs Date Time Temp Pulse Resp B/P B/P Pulse O2 O2 Flow FiO2 Mean Ox Delivery Rate 12/24 0856 60 118/53 12/24 0856 60 118/53 12/24 0649 97.8 60 20 118/53 95 Room Air 12/23 2247 98.6 63 18 130/70 95 Room Air 12/23 2151 63 130/70 12/23 1357 98.3 74 20 132/70 96 Room Air Intake & Output 12/24 1600 12/24 0800 12/24 0000 12/23 1600 12/23 0800 12/23 0000 Intake Total 1170 600 600 Output Total 400 Balance 1170 600 200 Intake, IV 450 600 600 Intake, Oral 720 Output, Urine 400 Patient 81.647 kg Weight Physical Exam: General Appearance: well developed/nourished, no apparent distress, alert, awake , comfortable Respiratory: chest non-tender, no respiratory distress, quiet respiration Cardiovascular: regular rate/rhythm Gastrointestinal: normal bowel sounds, soft, tenderness (RUQ and epigastric) Extremities: no edema Neurologic/Psych: alert, oriented x 3 Skin: normal color, warm/dry Current Medications: Current Medications Sig/Diana Start time Last Medication Dose Route Stop Time Status Admin Acetaminophen 650 MG Q8 PRN 12/21 1445 AC 12/21 PO 1753 Amlodipine Besylate 10 MG DAILY 12/21 1506 AC 12/24 PO 0856 Apixaban 5 MG BID 12/21 1430 AC 12/24 PO 0855 Aspirin Buffered 81 MG DAILY 12/21 1430 AC 12/24 PO 0855 Atorvastatin Calcium 20 MG 1700 12/21 1700 AC 12/23 PO 1601 Calcium Carbonate 500 MG DAILY 12/22 1807 AC 12/24 PO 0622 Dextrose/Sodium 1,000 ML Q13H 12/22 1600 DC 12/23 Chloride IV 12/23 1759 0530 Doxycycline Hyclate 100 MG BID 12/22 1349 AC 12/24 PO 0856 Fluocinonide 1 LOUISE ONCE ONE 12/24 1000 DC 12/24 TOP 12/24 1001 1142 Magnesium Hydroxide 30 ML ONE ONE 12/24 0815 DC 12/24 PO 12/24 0816 0855 Metoprolol Tartrate 100 MG BID 12/21 2200 AC 12/24 PO 0856 Morphine Sulfate 0.5 MG Q6 PRN 12/21 1445 AC 12/23 IV 2151 Ondansetron HCl 4 MG Q6P PRN 12/21 1445 AC IV Oxycodone HCl 5 MG Q8 PRN 12/21 1445 AC 12/24 PO 0619 Potassium Chloride 40 MEQ Q1 12/24 0900 DC 12/24 PO 12/24 1001 0911 Senna/Docusate Sodium 1 TAB ONCE ONE 12/23 1345 DC 12/23 PO 12/23 1346 1451 Results Last 24 Hours of Lab Results: Laboratory Tests 12/24 12/24 0920 0715 Chemistry Sodium (137 - 145 mmol/L) 137 Potassium (3.5 - 5.1 mmol/L) 3.7 Chloride (98 - 107 mmol/L) 101 Carbon Dioxide (22 - 30 mmol/L) 26 Anion Gap (5 - 16) 10 BUN (9 - 20 mg/dL) 14 Creatinine (0.7 - 1.2 mg/dL) 1.2 Estimated GFR (>60 ml/min) 58 L BUN/Creatinine Ratio (7 - 25 %) 11.7 Hematology CBC w Diff NO MAN DIFF REQ WBC (4.8 - 10.8 /CUMM) 3.9 L RBC (4.70 - 6.10 /CUMM) 3.11 L Hgb (14.0 - 18.0 G/DL) 9.4 L Hct (42 - 52 %) 27.1 L MCV (80.0 - 94.0 FL) 87.4 MCH (27.0 - 31.0 PG) 30.3 RDW (11.5 - 14.5 %) 13.9 Plt Count (130 - 400 /CUMM) 109 L MPV (7.4 - 10.4 FL) 7.8 Gran % (42.2 - 75.2 %) 52.9 Lymphocytes % (20.5 - 51.1 %) 37.3 Monocytes % (1.7 - 9.3 %) 7.2 Eosinophils % (0 - 5 %) 1.9 Basophils % (0.0 - 2.0 %) 0.7 Absolute Granulocytes (1.4 - 6.5 /CUMM) 2.1 Absolute Lymphocytes (1.2 - 3.4 /CUMM) 1.5 Absolute Monocytes (0.10 - 0.60 /CUMM) 0.3 Absolute Eosinophils (0.0 - 0.7 /CUMM) 0.1 Absolute Basophils (0.0 - 0.2 /CUMM) 0 PUBS MCHC (33.0 - 37.0 G/DL) 34.7 Assessment/Plan Assessment/Recommendations: Mr. Acevedo is an 81-year-old male with atrial fibrillation on apixaban, HTN, CAD s/p CABG (1999) and pacemaker (2009), prostate cancer s/p resection (2005), and HLD who presented with 3 days of fever, fatigue, nausea, vomiting, diarrhea, myalgia, and overall feeling unwell. He is noted to be pancytopenic with bandemia. Peripheral blood smear from 12/22/2016 was reviewed by me this morning and noted bandemia and large sized platelets. No schistocyte seen. His presentation is concerning for infectious etiology. His pancytopenia is likely related to this process. Tick-borne illness is at the top of the differential at the moment. Viral syndrome is also likely from the presentation. He is on doxycycline. His pancytopenia is improving. WBC is 3900 today. H/H is 9.4 and 27.1. Platelet is 109,000. This suggest infectious process as the primary etiology for his pancytopenia. He may follow up with PCP for monitoring of blood work. Recommendations: 1. Follow up Anasplasma and Babesia 2. Continue current antibiotic as per ID 3. Monitor CBC 4. Follow up with PCP Please call [phone] with any new questions or concerns Problem List: 1. Pancytopenia 2. Fever 3. Nausea vomiting and diarrhea
[2016-12-24] MEDS ORDERED: DOXYCYCLINE HY100 M4 PO (14:06)
[2016-12-24 14:32] VITALS: BP 151/78
[2016-12-24 14:45] VITALS: BP 146/78
--- NOTE | 2016-12-24 16:12 | Discharge Summary ---
Visit Information Visit Dates Admission Date: 12/21/16 Discharge Date: 12/24/16 Hospital Course Course Attending Physician: CHASE WIN MD Primary Care Physician: Pérez CHERY MD Consulting Request: 1 Consulting Specialty: Infectious Disease Consulting Physician: Reason for Consult: Pancytopenia with flu like illness Consulting Request: 2 Consulting Specialty: Hematology/Oncology Consulting Physician: Dr. Moraes Reason for Consult: Pancytopenia with history of prostate cancer Hospital Course: 81-year-old man with past medical history significant for atrial fibrillation on Eliquis, hypertension, hyperlipidemia, history of CABG in 1999, status post pacemaker in 2009, history of prostate cancer status post surgery 2005, brought in the emergency department by his son who noticed high-grade fever of 101 at home on 12/21/2016. Patient had progressively worsening of myalgias, arthralgias , increased back pain and right hip pain, several episodes of vomiting and a single episode of diarrhea prior to admission. He remained afebrile at admission, pulse 66, blood pressure 133/59 mmHg, on room air. Labs significant for white count of 2.0, with bandemia H&H 10/31.5, platelet of 64 (pancytopenic) . CT abdomen/pelvis didn't reveal any acute process, however demonstrates hepatic and renal cysts. At this point differentials include limes, Anaplasma, babesiosis, possible myelodysplastic syndrome although less likely. Admitted to general medicine floor Plan Pancytopenia secondary to possible anaplasma infection: Patient presented with gastroenteritis however labs are singnificant for pancytopenia. Patient is intensely fatigued at admission with recent flu like symptoms. His baseline previous lab were in 2012 obtained after having a conversation with PCP, white count 9.6, H&H H&H 12.1/ 35.6, platelet count 223,000. Patient was started on doxycycline pending tick panel. Hematology consulted, a prelimnary DIC panel (PT/PTT) requested as per their request which was unremarkable. As patient white count started to improve on doxycycline and peripheral smear is shows band neutrophils without any abnormal cells -- infection is considered most probable diagnosis. Lymes titers were negative. PCR for anaplasma is positive indicating its anaplasma. babesia PCR is negative. Patient is discharged with doxycycline 100mg BID for a total course of 10days. Right hip pain: Patient claimed of significant back and righ hip pain. History of prostate cancer 2006, so a repeat PSA done and is negative in the setting of bone pain and pancytopenia. Right hip x-ray is negative for any underlying fracture/muscle tear, as pain is improving with oxycodone, discharged with short course of oxycodone. Gastroenteritis Patient presented with 2-3 episodes of vomiting and single episode of diarrhea, however patient didnt have a single of episode of bowel movement. He was given milk of magnesium, dulcolax suppository which helped him for bowel movement on the day of discharge. Chronic stable conditions Atrial fibrillation: Eliquis 5 mg twice a day, metoprolol 100 twice a day Hypertension: Amlodipine 10 mg daily and aspirin 81 mg daily Hyperlipidemia: Atorvastatin 20 mg daily DVT prophylaxis On Eliquis CODE STATUS Full code Allergies: Coded Allergies: No Known Allergies (12/21/16) Disposition Summary Disposition Principal Diagnosis: Tick borne illness Additional Diagnosis: Right hip pain Gastroenteritis HTN A.fib HLD Discharge Disposition: home or self care Discharge Instructions General Discharge Information Code Status: Full Code Patient's Diet: Regular diet Patient's Activity: Activity as tolerated Follow-Up Instructions/Appts: Please follow up with your PCP in a week - Medications at Discharge Discharge Medications: Continue taking these medications: Amlodipine Besylate (Amlodipine Besylate) 10 MG TABLET 1 Tablet ORAL DAILY Qty = 90 Comments: Last Taken: 12/24/16 Time: 9:00 AM Multivit-Min/FA/Lycopen/Lutein (Centrum Silver Tablet) 0.4 MG-300 MCG-250 MCG TABLET 1 Tablet ORAL DAILY Comments: NOT GIVEN IN HOSPITAL Aspirin (Ecotrin*) 81 MG TABLET. 1 Tablet ORAL DAILY Comments: Last Taken: 12/24/16 Time: 9:00 AM Simvastatin (Simvastatin*) 40 MG TABLET 1 Tablet ORAL Every night Qty = 90 Comments: Last Taken: 12/23/16 Time: 5:00 PM Apixaban (Eliquis) 5 MG TABLET 1 Tablet ORAL TWICE DAILY Qty = 180 Comments: Last Taken: 12/24/16 Time: 9:00 AM Metoprolol Tartrate (Metoprolol Tartrate) 100 MG TABLET 1 Tablet ORAL TWICE DAILY Qty = 180 Comments: Last Taken: 12/24/16 Time: 9:00 AM Acetaminophen (Tylenol Extra Strength) 500 MG TABLET 2 Tablet ORAL EVERY SIX HOURS as needed for FEVER Comments: Last Taken: 12/21/16 Time: 6:00 PM Start taking the following new medications: Doxycycline Hyclate (Doxycycline Hyclate) 100 MG TABLET 1 Tablet ORAL TWICE DAILY Qty = 15 No Refills Comments: Last Taken: 12/24/16 Time: 9:00 AM Oxycodone HCl (Oxycodone HCl) 5 MG TABLET 1 Tablet ORAL 2 x Daily as needed as needed for PAIN Qty = 10 No Refills Comments: Last Taken: 12/24/16 Time: 6:30 AM Copies To: VIK AGUILAR,Pérez Broussard MD Review Statement Documenting Attending: CHASE WIN MD
== END 2016-12-24 14:58 | DRG 868 ==
LOC: ERH 10:50 → ERHI 12:43 → 2NB 12:43 → ENRESERV 13:15 → ENTRNSPT 13:39 → EDTRNSPTSTS 13:57 → 2NB 14:01 → CMPTRNSPT 14:29 → 2NB 12-24 14:58
PROVIDERS: Internal Medicine; Physician Assistant; Student in an Organized Health Care Education/Training Program; ADMIT Internal Medicine
DX: A77.49 Other ehrlichiosis (principal); D61.818 Other pancytopenia; I48.2 Chronic atrial fibrillation; E87.1 Hypo-osmolality and hyponatremia; K76.89 Other specified diseases of liver; E86.0 Dehydration; N28.1 Cyst of kidney, acquired; I12.9 Hypertensive chronic kidney disease with stage 1 through stage 4 chronic kidney disease, or unspecified chronic kidney disease; E73.9 Lactose intolerance, unspecified; K52.9 Noninfective gastroenteritis and colitis, unspecified; D72.819 Decreased white blood cell count, unspecified; Z79.01 Long term (current) use of anticoagulants; N18.2 Chronic kidney disease, stage 2 (mild); Z85.46 Personal history of malignant neoplasm of prostate; E78.5 Hyperlipidemia, unspecified; Z95.1 Presence of aortocoronary bypass graft; Z95.0 Presence of cardiac pacemaker; M25.551 Pain in right hip; I25.10 Atherosclerotic heart disease of native coronary artery without angina pectoris; M54.9 Dorsalgia, unspecified; G89.29 Other chronic pain; Z87.891 Personal history of nicotine dependence; E78.00 Pure hypercholesterolemia, unspecified; M19.90 Unspecified osteoarthritis, unspecified site; R01.1 Cardiac murmur, unspecified
CPT/HCPCS: 2NBP; 86317; 86618; 87798; 36415; 72110; 73501; 74177; 81001; 82436; 87040; 87086; 87328; 87329; 96361; 96374; J2405; J7042